=== PATIENT | female | born 1960 | race Caucasian/White ===

== ENCOUNTER 2019-03-19 21:29 | Inpatient (IN) | payer MEDICARE, MEDICAID, SELFPAY ==
--- NOTE | ~2019-03-19 | XR_ITS ---
EXAMINATION: XR chest 1V portable EXAM DATE: 03/19/2019 23:07 INDICATION: Shortness of breath. TECHNIQUE: Portable AP frontal chest x-ray was obtained. Comparison is made to prior examination from 03/09/2019. FINDINGS: The cardiac silhouette is enlarged. Cardiac silhouette is stable in size compared to prior exam. There is pulmonary vascular congestion. There is indistinct reticulation with a bibasal predomi nance which may indicate pulmonary edema, new finding compared to prior study. No confluent consolida tion or pneumothorax. No sizable pleural effusion. IMPRESSION: Cardiomegaly, congestion and possibly developing pulmonary edema. Reviewed, dictated and finalized at location [facility]
--- NOTE | ~2019-03-19 | XR_ITS ---
XR chest 2V DATE: 03/22/2019 14:04 INDICATION: Shortness of breath TECHNIQUE: PA and lateral views COMPARISON: 03/19/2019 portable AP chest FINDINGS: There is mild atelectasis in both lower lung zones. No pleural effusion or pulmonary vascul ar congestion or pneumothorax is evident. Cardiomegaly. Pulmonary vascularity appears within normal range. There is minimal if any pleural effu alona. There is degenerative spurring of the thoracic spine. Surgical clips, right upper quadrant, consistent with cholecystectomy. IMPRESSION: Mild atelectasis in the lower lung zones Cardiomegaly Reviewed, dictated and finalized at location [facility]. [facility]
[2019-03-19 21:25] VITALS: O2SAT 96
[2019-03-19 21:29] VITALS: BP 136/98; PULSE 93; RESP 24; O2SAT 99
--- NOTE | 2019-03-19 21:30 | ED.GENADULT ---
HPI - General Adult General Chief complaint: Shortness of Breath/Dyspnea Stated complaint: cp Time Seen by Provider: 03/19/19 21:30 Source: patient Mode of arrival: EMS Limitations: no limitations History of Present Illness HPI narrative: The pt is a 58 y/o female who presents to the ED, via EMS, with c/o SOB and CP that began 1 week ago. The pt states that her CP is located at the middle of her chest and radiates to her lt shoulder. She describes her CP as a sharp pain, rating it a 9/10. The pt has not found anything that makes her pain better or worse. She also reports lt back pain, lt leg pain, cough, and BLE edema, but denies fever or dysuria. The pt notes that she did vomit earlier today but denies vomiting in the ED bed. She has a PMHx of COPD, HTN, and DM, as well as a SHx of a . The pt is normally on home O2 and has not received any breathing treatments en route to the ED. MD complaint: CP and SOB Onset (ago): week(s) (1) Location: chest (middle) Radiation: other (lt shoulder) Severity scale (1-10): 9 Quality: sharp Relieving factors: none Exacerbating factors: none Associated symptoms: cough and other (lt back pain, lt leg pain, BLE edema) Related Data Home Medications Medication Instructions Recorded Confirmed albuterol sulfate 2 puff INHALATION Q4H PRN 03/19/19 03/20/19 ascorbic acid (vitamin C) 500 mg PO DAILY 03/19/19 03/20/19 insulin lispro [Humalog U-100 1 sliding scale dose SUBCUT 03/19/19 03/20/19 Insulin] USEASDIRECTD loperamide 4 mg PO BID 03/19/19 03/20/19 omeprazole 20 mg PO DAILY PRN 03/19/19 03/20/19 polyethylene glycol 3350 17 g PO DAILY PRN 03/19/19 03/20/19 ropinirole 2 mg PO BID 03/19/19 03/20/19 acetaminophen 650 mg PO Q6H PRN 03/20/19 03/20/19 alprazolam [Xanax] 0.25 mg PO TID PRN 03/20/19 03/20/19 amitriptyline 50 mg PO HS 03/20/19 03/20/19 aspirin 81 mg PO DAILY 03/20/19 03/20/19 bisacodyl 10 mg PO DAILY PRN 03/20/19 03/20/19 calcium carbonate [Antacid 400 mg PO TID PRN 03/20/19 03/20/19 (calcium carbonate)] carvedilol [Coreg] 25 mg PO BID 03/20/19 03/20/19 ferrous sulfate 325 mg PO EVERY OTHER DAY 03/20/19 03/20/19 furosemide [Lasix] 40 mg PO BID 03/20/19 03/20/19 hydrocodone-acetaminophen 1 tablet PO Q6H PRN 03/20/19 03/20/19 insulin glargine [Lantus U-100 20 unit SUBCUT HS 03/20/19 03/20/19 Insulin] levothyroxine 50 mcg PO DAILY 03/20/19 03/20/19 lurasidone [Latuda] 80 mg PO DAILY 03/20/19 03/20/19 melatonin 3 mg PO HS PRN 03/20/19 03/20/19 melatonin 5 mg PO HS PRN 03/20/19 03/20/19 metformin 500 mg PO BID 03/20/19 03/20/19 Allergies Allergy/AdvReac Type Severity Reaction Status Date / Time codeine Allergy Unknown Verified 03/19/19 23:26 Penicillins Allergy Unknown Verified 03/19/19 23:26 Sulfa (Sulfonamide Allergy Unknown Verified 03/19/19 23:26 Antibiotics) Review of Systems Review of Systems: All systems reviewed & are unremarkable except as noted in HPI and below Constitutional: Constitutional: Denies fever(s) Cardiovascular: Cardiovascular: Reports chest pain and Reports edema (BLE) Respiratory: Respiratory: Reports cough and Reports dyspnea Gastrointestinal: Gastrointestinal: Denies vomiting Genitourinary: Genitourinary: Denies dysuria Musculoskeletal: Musculoskeletal: Reports back pain (lt) and Reports other (lt leg pain) [facility] Past Medical History Medical History (Updated 03/21/19 @ 15:39 by Praveena Beth MD) COPD (chronic obstructive pulmonary disease) Diabetes Hypertension Surgical History Surgical History (Updated 03/19/19 @ 21:37 by Aracely Morse) History of primary section Family History Family History (Updated 12/14/19 @ 03:28 by Yumiko Simpson RN) Mother Diabetes mellitus Alcohol abuse CHF (congestive heart failure) Heart attack Hypertension Blood clot in vein Asthma Sibling Diabetes mellitus Hypertension Social History Social History (Updated 03/19/19 @ 21:37 by Aracely Morse)
--- NOTE | 2019-03-19 21:37 | ECG_ITS ---
Measurements Intervals [place] Rate: 103 P: 43 PA: 146 QRS: -38 QRSD: 130 T: 53 QT: 337 QTc: 442 Interpretive Statements SINUS TACHYCARDIA LEFT AXIS DEVIATION INTRAVENTRICULAR CONDUCTION DELAY VOLTAGE CRITERIA FOR LVH MINIMAL Q WAVES- LATERAL LEADS BASELINE ARTIFACT- I, II, AVR, AVL, AVF ABNORMAL ECG Electronically Signed On 03-20-2019 8:04:40 [employer]OCHEMI[employer] TEACHER by Mikey Garza D.O.
[2019-03-19 21:41] VITALS: PULSE 103
[2019-03-19 21:55] LABS: Basophils Percent Auto 0.4 % (0.2-1.2); Eosinophils Absolute Auto 0.1 K/mm3 (0-0.3); Eosinophils Percent Auto 1.4 % (0-4.4); Hematocrit 35.3 % (37.0-47.0); Hemoglobin 10.3 g/dL (12.0-15.0); Immature Granulocyte Absolute 0.29 K/mm3 (0.00-0.031); Immature Granulocyte Percent A 3.7 % (0-0.5); Lymphocytes Absolute Auto 0.92 K/mm3 (0.9-3.2); Lymphocytes Percent Auto 11.8 % (18.3-44.2); Mean Corpuscular HGB Conc 29.2 g/dl (32-36); Mean Corpuscular Hemoglobin 29.4 pg (26-34); Mean Corpuscular Volume 100.9 fl (80-100); Mean Platelet Volume 10.1 fl (7.4-10.4); Monocytes Absolute Auto 0.7 K/mm3 (0.1-0.6); Monocytes Percent Auto 8.7 % (2.6-8.5); Neutrophils Absolute Auto 5.8 K/mm3 (1.3-6.7); Nucleated Red Blood Cells Perc 0.4 % (0.0-0.2); Platelet Count Result 174 k/mm3 (150-375); Red Cell Distribution Width 14.6 % (11.5-14.5); White Blood Count 7.8 K/mm3 (4.5-10.0)
[2019-03-19 22:07] LABS: Platelet Estimate Adequate (Adequate)
[2019-03-19 22:08] LABS: Anisocytosis 1+ (NORMAL); Hypochromasia 1+ (NORMAL)
[2019-03-19 22:11] LABS: Alanine Aminotransferase 26 U/L (4-35); Albumin Level 3.3 g/dL (3.5-5.1); Alkaline Phosphatase 100 U/L (38-126); Aspartate Amino Transferase 27 U/L (14-36); Bilirubin,Total 0.4 mg/dL (0.2-1.3); Blood Urea Nitrogen 33 mg/dL (7-17); Calcium 8.4 mg/dL (8.4-10.2); Carbon Dioxide > 40 mmol/L (22-30); Chloride 88 mmol/L (98-107); Estimated Glomerular Filt Rate 46; Glucose 130 mg/dL (65-105); Potassium 4.1 mmol/L (3.4-5.0); Sodium 140 mmol/L (137-145)
[2019-03-19 22:15] VITALS: PULSE 99; RESP 19
[2019-03-19] MEDS: ALBUTEROL SULFATE NEB 2.5 MG/0.5 ML INH INHALATION (22:20)
[2019-03-19] MEDS: IPRATROPIUM BR 0.02% INH SOLN 0.5 MG/2.5 ML VIAL INHALATION (22:20)
[2019-03-19 22:35] VITALS: PULSE 101; RESP 18
[2019-03-19 22:36] LABS: Base Excess ABG 14.7 mEq/l (+/-2.0); Carboxyhemoglobin 0.9 % THb (0-2.0); Fractional Inspired Oxygen 36 %; HCO3 ABG 46.2 mEq/l (22.0-26.0); Methemoglobin ABG 0.3 %THb (0-1.5); Oxygen Content ABG 14.9 %vol (16.0-22.0); Oxygen Saturation ABG 98.4 % (95.0-100.0); PO2 ABG 155.3 mmHg (80.0-100.0); PO2 FiO2 Ratio Arterial Blood 4.31 %; Reduced Hemoglobin 2.8 %THb (0-5.0); Total Hemoglobin 10.8 g/dL (12.0-18.0)
[2019-03-19 22:45] VITALS: PULSE 101; RESP 20
[2019-03-19 22:45] LABS: PCO2 ABG 113.8 mmHg (35.0-45.0); pH ABG 7.226 (7.350-7.450)
[2019-03-19 22:47] LABS: Site Drawn LEFT RADIAL
[2019-03-19 22:48] LABS: Device NASAL CANNULA; Modified Allen's Test Pass
[2019-03-19] MEDS: methylPREDNISolone SOD SUCC 125 MG VIAL IV PUSH (22:58)
[2019-03-20] VITALS (30 sets, daily range): BP systolic 124–168; BP diastolic 71–105; PULSE 69–108; RESP 14–26; TEMP 36.1–36.6; O2SAT 95–100; BMI 52.0
[2019-03-20 00:04] LABS: NT Pro B Type Natriuretic Pept 1130 PG/ML (5-100); Troponin I < 0.012 ng/mL (0.000-0.034)
[2019-03-20 00:30] LABS: Alveolar/Arterial O2 Gradient 79.9 mmHg; Base Excess ABG 8.3 mEq/l (+/-2.0); Carboxyhemoglobin 1.4 % THb (0-2.0); Fractional Inspired Oxygen 40 %; HCO3 ABG 38.1 mEq/l (22.0-26.0); Methemoglobin ABG 0.3 %THb (0-1.5); Oxygen Content ABG 14.7 %vol (16.0-22.0); Oxygen Saturation ABG 96.5 % (95.0-100.0); Oxyhemoglobin 94.1 % THb (90.0-100.0); PO2 ABG 103.3 mmHg (80.0-100.0); PO2 FiO2 Ratio Arterial Blood 2.58 %; Reduced Hemoglobin 4.2 %THb (0-5.0)
[2019-03-20 00:32] LABS: Modified Allen's Test Pass; PCO2 ABG 88.7 mmHg (35.0-45.0); Site Drawn LEFT RADIAL; pH ABG 7.251 (7.350-7.450)
[2019-03-20 00:33] LABS: Device NON-INVASIVE VENT; Non-Invasive Expiratory Pressure 6 CMH2O; Non-Invasive Inspiratory Pressure 16 CMH2O; Non-Invasive Vent Rate 14 /MIN
[2019-03-20 01:42] LABS: Troponin I < 0.012 ng/mL (0.000-0.034)
--- NOTE | 2019-03-20 01:54 | ADMGEN ---
This patient, Sameera Chilel, was admitted to IMU Room 232-01. Patient/family oriented to hospital policies and general routines including ID bracelet, bed and alarms, visiting hours, pain management, procedures, bathroom and other care routines, personal items, smoking policy, room service/diet, and visiting hours. Valuables list has been completed. Information on how to activate the Rapid Response Team has been discussed. Patient/Family are encouraged to report perceived risks to care and to ask questions if they do not understand what they are told or what they should do.
[2019-03-20 04:19] LABS: Troponin I < 0.012 ng/mL (0.000-0.034)
[2019-03-20 04:58] LABS: Alveolar/Arterial O2 Gradient 89.2 mmHg; Base Excess ABG 7.8 mEq/l (+/-2.0); Carboxyhemoglobin 1.6 % THb (0-2.0); Fractional Inspired Oxygen 40 %; HCO3 ABG 38.9 mEq/l (22.0-26.0); Methemoglobin ABG 0.3 %THb (0-1.5); Oxygen Content ABG 19.2 %vol (16.0-22.0); Oxygen Saturation ABG 95.3 % (95.0-100.0); PO2 ABG 92.2 mmHg (80.0-100.0); Reduced Hemoglobin 5.1 %THb (0-5.0); Total Hemoglobin 14.6 g/dL (12.0-18.0)
[2019-03-20 05:00] LABS: PCO2 ABG 90.3 mmHg (35.0-45.0); pH ABG 7.252 (7.350-7.450)
[2019-03-20 05:01] LABS: Device NON-INVASIVE VENT; Modified Allen's Test Pass; Site Drawn LEFT RADIAL
[2019-03-20 05:02] LABS: Non-Invasive Expiratory Pressure 8 CMH2O; Non-Invasive Inspiratory Pressure 24 CMH2O; Non-Invasive Vent Rate 20 /MIN
[2019-03-20 05:49] LABS: Glucose Point of Care 199 (65-105)
[2019-03-20] MEDS: methylPREDNISolone SOD SUCC 125 MG VIAL 60 MG IV PUSH ×3 (06:23→21:02)
[2019-03-20] MEDS: LEVOTHYROXINE SODIUM 50 MCG TABLET PO (06:23)
--- NOTE | 2019-03-20 06:31 | HP_ITS ---
DATE OF SERVICE: 03/20/2019 The patient has also been admitted under a on prior hospitalization. TIME: 0245. CHIEF COMPLAINT: Chest pain. HISTORY OF PRESENT ILLNESS: The patient is a pleasant 58-year-old female with a past medical history of bipolar disorder, prior CVA, Parkinson disease, morbid obesity with obesity hypoventilation, obstructive sleep apnea, and COPD, who presented to the ER from [facility] for chest pain that has been ongoing for one week. The patient reported the pain is in the middle of her chest and radiates to her left shoulder. She describes the pain as sharp and 9/10 in intensity. She denied any eliciting or relieving factors. However, at the time of my evaluation, the patient reports that she has been feeling more short of breath for the last couple of days. She reports a cough that is nonproductive. She has been feeling feverish, but denies any chills. She does have chronic bilateral lower extremity swelling, but she does not know if it is any worse than usual. She did have 1 episode of posttussive emesis prior to coming to the ER. She denies any nausea or changes in appetite. She has been having normal bowel movement. She denies any dysuria or hematuria. The patient does have chronic hypoxic and hypercapnic respiratory failure when she arrived to the ER. She was tachycardic and tachypneic, but saturating 99% on 4 L nasal cannula. ABG performed at that time demonstrated pH of 7.226, pCO2 of 113, and PO2 of 155, and the patient subsequently received nebulizer treatment with albuterol and Atrovent, IV Solu-Medrol, and 1 dose of methylprednisolone. Repeat ABG about an hour and half after BiPAP placement demonstrated minimal improvement in her pH 7.251 and pCO2 of 88. The patient's ABG was significantly worse than her prior ABGs, which demonstrated normal pH and pCO2 between 60 and 70. The patient has subsequently had 3 sets of troponins since presentation that have been negative. She reports that she feels minimally better since she was admitted to the IMU. The patient does have baseline intellectual disability, but is usually at least a fair historian. The patient does still have terrible dental caries and chronic associated mouth pain. Of note, the patient did have a polysomnogram performed in February 2019, which recommended a CPAP of 13 and a sleep study was terminated early due to the patient's request. When the patient was [facility] to the [facility] facility, it looks as if she was discharged on BiPAP with settings of 16/6 with a rate of 12. The patient states that she has been using her breathing machine at the [facility]. The patient has candidiasis in the inguinal folds and under her pannus fold. REVIEW OF SYSTEMS: Except as documented in her HPI, all other systems were reviewed and are negative. PAST MEDICAL HISTORY: 1. Chronic anemia with hemoglobin at baseline around 10. 2. Anxiety. 3. Bipolar disease. 4. Congestive heart failure with echocardiogram on 02/15/2019 demonstrated mild concentric left ventricular hypertrophy with systolic function of 55-60. 5. COPD with chronic hypoxic hypercarbic respiratory failure. 6. Obesity hypoventilation. 7. Obstructive sleep apnea with sleep study 02/25/2019, recommended CPAP of 13. However, the exam was terminated early due to patient's discomfort. 8. CVA. 9. Depression. 10. Insulin-dependent diabetes mellitus with hemoglobin A1c of 9.1 obtained on March 10, 2019. 11. GERD. 12. Hypothyroidism. 13. Intellectual disability. I suspect the patient's chronic intellectual disability is due to alcohol syndrome. 14. Chronic lymphedema of bilateral lower extremities. 15. Obesity with BMI of 52.1. 16. Parkinson disease. 17. Vitamin D deficiency. 18.
[2019-03-20 09:06] LABS: Glucose Point of Care 219 (65-105)
[2019-03-20] MEDS: TOLNAFTATE 1% POWDER 45 GM BTL 1 APPLIC TOPICAL ×2 (09:52→21:04)
[2019-03-20] MEDS: ASPIRIN 81 MG ENTERIC TABLET PO (09:58)
[2019-03-20] MEDS: PANTOPRAZOLE SOD SESQUIHYDRATE 20 MG TAB PO (09:58)
[2019-03-20] MEDS: ASCORBIC ACID 500 MG TABLET PO (09:58)
[2019-03-20] MEDS: FUROSEMIDE INJ 40 MG/4 ML VIAL IV PUSH ×2 (09:59→17:32)
[2019-03-20] MEDS: ENOXAPARIN 40 MG/0.4 ML SYRINGE SUB-Q ×2 (09:59→21:01)
[2019-03-20] MEDS: carvediloL 25 MG TABLET PO ×2 (09:59→21:00)
[2019-03-20] MEDS: IPRATROPIUM BR 0.02% INH SOLN 0.5 MG/2.5 ML VIAL INHALATION ×3 (10:14→21:31)
[2019-03-20] MEDS: ALBUTEROL SULFATE NEB 2.5 MG/0.5 ML INH 5 MG INHALATION ×3 (10:14→21:31)
[2019-03-20 11:36] LABS: Alveolar/Arterial O2 Gradient 54.6 mmHg; Carboxyhemoglobin 0.8 % THb (0-2.0); Fractional Inspired Oxygen 30 %; HCO3 ABG 42.1 mEq/l (22.0-26.0); Methemoglobin ABG 0.3 %THb (0-1.5); Oxygen Content ABG 13.3 %vol (16.0-22.0); Oxygen Saturation ABG 92.3 % (95.0-100.0); Oxyhemoglobin 91.5 % THb (90.0-100.0); PO2 ABG 69.4 mmHg (80.0-100.0); PO2 FiO2 Ratio Arterial Blood 2.31 %; Reduced Hemoglobin 7.4 %THb (0-5.0); Total Hemoglobin 10.3 g/dL (12.0-18.0); pH ABG 7.358 (7.350-7.450)
[2019-03-20 11:37] LABS: Modified Allen's Test Pass; PCO2 ABG 76.5 mmHg (35.0-45.0); Site Drawn LEFT RADIAL
[2019-03-20 11:38] LABS: Device NON-INVASIVE VENT; Non-Invasive Expiratory Pressure 8 CMH2O; Non-Invasive Inspiratory Pressure 24 CMH2O; Non-Invasive Vent Rate 20 /MIN
[2019-03-20 12:00] LABS: Glucose Point of Care 240 (65-105)
[2019-03-20] MEDS: INSULIN ASPART (*BKC) 100 UNITS/ML SUB-Q ×2 (12:27→17:34)
[2019-03-20] MEDS: metFORMIN HCL 500 MG TABLET PO (17:32)
[2019-03-20 17:39] LABS: Glucose Point of Care 318 (65-105)
--- NOTE | 2019-03-20 17:55 | PM.IMPN ---
Progress Note: A&P Assessment and Plan (1) Acute hypercapnic respiratory failure: Code(s): J96.02 - Acute respiratory failure with hypercapnia Status: Acute Assessment and Plan: Patient is a 58-year-old female a resident of care home morbidly obese with history of diastolic dysfunction CHF, COPD presented emergency department with the complaint of sharp chest pain is found to have hypercapnic respiratory failure with a CO2 over 100 was placed on BiPAP improvement in her CO2 and pH, currently patient on BiPAP unable to provide detailed review of symptom. Most likely multifactorial secondary to exacerbation of acute on chronic diastolic dysfunction, exacerbation of COPD hyperventilation due to morbid obesity, patient is being treated with BiPAP Solu-Medrol updraft and IV Lasix clinical continue to monitor the patient and taper her Solu-Medrol and adjust her Lasix as needed (2) Morbid (severe) obesity due to excess calories: Code(s): E66.01 - Morbid (severe) obesity due to excess calories Status: Acute (3) COPD exacerbation: Code(s): J44.1 - Chronic obstructive pulmonary disease with (acute) exacerbation Status: Acute Assessment and Plan: Patient with history of COPD now in exacerbation patient is being treated with Solu-Medrol updraft and antibiotics (4) Diastolic dysfunction with acute on chronic heart failure: Code(s): I50.33 - Acute on chronic diastolic (congestive) heart failure Status: Acute Assessment and Plan: Patient with diastolic dysfunction will continue patient on IV Lasix and monitor I&Os (5) Diabetes: Code(s): E11.9 - Type 2 diabetes mellitus without complications Status: Acute Assessment and Plan: Will continue home regimen and monitor (6) Hypertension: Code(s): I10 - Essential (primary) hypertension Status: Acute Assessment and Plan: Will continue patient's home regimen and monitor (7) Chest pain as manifestation of blood transfusion reaction: Code(s): R07.9 - Chest pain, unspecified; T80.89XA - Other complications following infusion, transfusion and therapeutic injection, initial encounter; Y84.8 - Other medical procedures as the cause of abnormal reaction of the patient, or of later complication, without mention of misadventure at the time of the procedure Status: Acute Assessment and Plan: Patient with chest pain upon arrival 3 sets of cardiac enzymes are negative there is no acute changes on EKG most likely musculoskeletal pain or possible due to exacerbation of COPD and CHF unlikely acute coronary syndrome Time Spent With Patient Time with patient: 15 - 25 minutes Subjective Interval history: Patient is a 58-year-old female a resident of care home morbidly obese with history of diastolic dysfunction CHF, COPD presented emergency department with the complaint of sharp chest pain is found to have hypercapnic respiratory failure with a CO2 over 100 was placed on BiPAP improvement in her CO2 and pH, currently patient on BiPAP unable to provide detailed review of symptom. Review of Systems Review of Systems: Narrative: Patient on BiPAP unable to provide detailed review of symptoms ROS unobtainable: other Exam Narrative: Exam Narrative: Morbidly obese with BMI of 52 Const: General: comfortable and no acute distress Other: On BiPAP HENMT: General nose exam: nares normal Mouth: Yes moist mucous membranes Eyes: General: appearance normal, both eyes and all related structures Sclera: sclerae normal Neck: Neck: supple Resp: Other: Bilateral diminishing air entry with rhonchi and rales Cardio: Rate: regular rate Rhythm: regular rhythm GI: Auscultation: normal bowel sounds Skin: General skin exam: normal color and no rashes or lesions noted Neuro: Sensory Exam: normal sensation Extrem: General: normal to inspection Psych: Affect: anxious affect Objective Data Vital Signs Vit
[2019-03-20 20:09] LABS: Glucose Point of Care 386 (65-105)
[2019-03-20] MEDS: AMITRIPTYLINE HCL 25 MG TABLET 50 MG PO (21:00)
[2019-03-20] MEDS: INSULIN GLARGINE (*BKC) 100 UNITS/ML 20 UNITS SUB-Q (21:01)
[2019-03-21] VITALS (22 sets, daily range): BP systolic 127–138; BP diastolic 69–80; PULSE 71–94; RESP 18–28; TEMP 36.1–36.9; O2SAT 93–100
[2019-03-21 00:28] LABS: Glucose Point of Care 363 (65-105)
[2019-03-21] MEDS: INSULIN ASPART (*BKC) 100 UNITS/ML SUB-Q ×2 (00:42→09:07)
[2019-03-21] MEDS: IPRATROPIUM BR 0.02% INH SOLN 0.5 MG/2.5 ML VIAL INHALATION ×4 (02:08→19:14)
[2019-03-21] MEDS: ALBUTEROL SULFATE NEB 2.5 MG/0.5 ML INH 5 MG INHALATION ×4 (02:09→19:14)
[2019-03-21 03:04] LABS: Glucose Point of Care 336 (65-105)
[2019-03-21 04:34] LABS: Hematocrit 30.4 % (37.0-47.0); Mean Corpuscular HGB Conc 29.6 g/dl (32-36); Mean Corpuscular Hemoglobin 29.1 pg (26-34); Mean Corpuscular Volume 98.4 fl (80-100); Mean Platelet Volume 10.7 fl (7.4-10.4); Platelet Count Result 194 k/mm3 (150-375); Red Blood Count 3.09 M/mm3 (4.2-5.4); White Blood Count 10.8 K/mm3 (4.5-10.0)
[2019-03-21] MEDS: methylPREDNISolone SOD SUCC 125 MG VIAL 60 MG IV PUSH ×3 (05:23→22:05)
[2019-03-21] MEDS: LEVOTHYROXINE SODIUM 50 MCG TABLET PO (05:23)
[2019-03-21 05:32] LABS: Blood Urea Nitrogen 40 mg/dL (7-17); Calcium 8.1 mg/dL (8.4-10.2); Carbon Dioxide > 40 mmol/L (22-30); Chloride 86 mmol/L (98-107); Estimated CRCL calculation 60 ml/min; Estimated Glomerular Filt Rate 46; Glucose 344 mg/dL (65-105); Magnesium 1.3 mg/dL (1.6-2.3); Potassium 4.4 mmol/L (3.4-5.0); Sodium 134 mmol/L (137-145)
[2019-03-21 08:25] LABS: Glucose Point of Care 301 (65-105)
[2019-03-21] MEDS: MAGNESIUM SULF 2 GM/WATER 50ML 2 GM/50 ML BAG IVPB (09:10)
[2019-03-21] MEDS: PANTOPRAZOLE SOD SESQUIHYDRATE 20 MG TAB PO (09:11)
[2019-03-21] MEDS: metFORMIN HCL 500 MG TABLET PO (09:11)
[2019-03-21] MEDS: ASCORBIC ACID 500 MG TABLET PO (09:11)
[2019-03-21] MEDS: carvediloL 25 MG TABLET PO ×2 (09:12→22:04)
[2019-03-21] MEDS: ASPIRIN 81 MG ENTERIC TABLET PO (09:12)
[2019-03-21] MEDS: ENOXAPARIN 40 MG/0.4 ML SYRINGE SUB-Q ×2 (09:13→22:05)
[2019-03-21] MEDS: TOLNAFTATE 1% POWDER 45 GM BTL 1 APPLIC TOPICAL ×2 (09:15→22:07)
[2019-03-21] MEDS: FUROSEMIDE INJ 40 MG/4 ML VIAL IV PUSH (09:18)
[2019-03-21 12:47] LABS: Glucose Point of Care 411 (65-105)
[2019-03-21] MEDS: INSULIN GLARGINE (*BKC) 100 UNITS/ML 20 UNITS SUB-Q ×2 (13:32→22:06)
[2019-03-21] MEDS: INSULIN ASPART (*BKC) 100 UNITS/ML 8 UNITS SUB-Q (13:33)
--- NOTE | 2019-03-21 15:13 | PM.IMPN ---
Progress Note: A&P Assessment and Plan (1) Acute hypercapnic respiratory failure: Code(s): J96.02 - Acute respiratory failure with hypercapnia Status: Acute Assessment and Plan: Patient is a 58-year-old female a [facility] morbidly obese with history of diastolic dysfunction CHF, COPD presented emergency department with the complaint of sharp chest pain is found to have hypercapnic respiratory failure with a CO2 over 100 was placed on BiPAP improvement in her CO2 and pH, currently patient on BiPAP unable to provide detailed review of symptom. Most likely multifactorial secondary to exacerbation of acute on chronic diastolic dysfunction, exacerbation of COPD hyperventilation due to morbid obesity, patient is being treated with BiPAP Solu-Medrol updraft and IV Lasix clinical continue to monitor the patient and taper her Solu-Medrol and adjust her Lasix as needed, today patient is off BIPAP and high flow NC, stats feeling better not as short of breath as when she arrive, will CPM and keep patient on NC during day and BIPAP during night. (2) Morbid (severe) obesity due to excess calories: Code(s): E66.01 - Morbid (severe) obesity due to excess calories Status: Acute (3) COPD exacerbation: Code(s): J44.1 - Chronic obstructive pulmonary disease with (acute) exacerbation Status: Acute Assessment and Plan: Patient with history of COPD now in exacerbation patient is being treated with Solu-Medrol updraft and antibiotics, will taper steroids as her symptoms improves. (4) Diastolic dysfunction with acute on chronic heart failure: Code(s): I50.33 - Acute on chronic diastolic (congestive) heart failure Status: Acute Assessment and Plan: Patient with diastolic dysfunction will continue patient on IV Lasix and monitor I&Os (5) Diabetes: Code(s): E11.9 - Type 2 diabetes mellitus without complications Status: Acute Assessment and Plan: Will continue home regimen and monitor (6) Hypertension: Code(s): I10 - Essential (primary) hypertension Status: Acute Assessment and Plan: Will continue patient's home regimen and monitor (7) Chest pain as manifestation of blood transfusion reaction: Code(s): R07.9 - Chest pain, unspecified; T80.89XA - Other complications following infusion, transfusion and therapeutic injection, initial encounter; Y84.8 - Other medical procedures as the cause of abnormal reaction of the patient, or of later complication, without mention of misadventure at the time of the procedure Status: Acute Assessment and Plan: Patient with chest pain upon arrival 3 sets of cardiac enzymes are negative there is no acute changes on EKG most likely musculoskeletal pain or possible due to exacerbation of COPD and CHF unlikely acute coronary syndrome Subjective Interval history: Patient is a 58-year-old female a resident of [facility] morbidly obese with history of diastolic dysfunction CHF, COPD presented emergency department with the complaint of sharp chest pain is found to have hypercapnic respiratory failure with a CO2 over 100 was placed on BiPAP improvement in her CO2 and pH, patient was on BiPAP was unable to provide detailed review of symptom, today patient is off BIPAP and high flow NC, stats feeling better not as short of breath as when she arrive, will CPM and keep patient on NC during day and BIPAP during night. Review of Systems Review of Systems: ROS unobtainable: other Exam Narrative: Exam Narrative: Morbidly obese with BMI of 52 Const: General: comfortable and no acute distress Other: On BiPAP HENMT: General nose exam: nares normal Mouth: Yes moist mucous membranes Eyes: General: appearance normal, both eyes and all related structures Sclera: sclerae normal Neck: Neck: supple Resp: Other: Bilateral diminishing air entry with rhonchi and rales Cardio: Rate: regular rate Rhythm: regular
[2019-03-21] MEDS: INSULIN ASPART (*BKC) 100 UNITS/ML 15 UNITS SUB-Q (15:58)
[2019-03-21 16:54] LABS: Glucose Point of Care 405 (65-105)
[2019-03-21 18:20] LABS: Glucose Point of Care 352 (65-105)
--- NOTE | 2019-03-21 19:09 | PC.NURSE ---
This patient, Sameera Chilel, was received from [IMU ] on 03/21/19 at 1610 . Personal belongings list checked and signed. Patient/family oriented to unit policies and routines
[2019-03-21] MEDS: AMITRIPTYLINE HCL 25 MG TABLET 50 MG PO (22:05)
[2019-03-21] MEDS: ACETAMINOPHEN 325 MG TABLET 650 MG PO (22:08)
[2019-03-21 22:53] LABS: Glucose Point of Care 340 (65-105)
[2019-03-22] VITALS (16 sets, daily range): BP systolic 133–154; BP diastolic 65–85; PULSE 72–96; RESP 18–22; TEMP 36.3–36.4; O2SAT 93–98
[2019-03-22] MEDS: IPRATROPIUM BR 0.02% INH SOLN 0.5 MG/2.5 ML VIAL INHALATION ×4 (01:51→19:58)
[2019-03-22] MEDS: ALBUTEROL SULFATE NEB 2.5 MG/0.5 ML INH 5 MG INHALATION ×4 (01:51→19:58)
--- NOTE | 2019-03-22 02:30 | PC.NURSE ---
1700 medications non-administered on JUN. Per Jayne and pt all medications were received in IMU before patient was transferred to room 326.
[2019-03-22 04:15] LABS: Glucose Point of Care 362 (65-105)
[2019-03-22] MEDS: INSULIN GLARGINE (*BKC) 100 UNITS/ML 20 UNITS SUB-Q ×3 (04:41→17:21)
[2019-03-22] MEDS: methylPREDNISolone SOD SUCC 40 MG VIAL IV PUSH (06:00)
[2019-03-22] MEDS: LEVOTHYROXINE SODIUM 50 MCG TABLET PO (06:00)
[2019-03-22 06:15] LABS: Hematocrit 30.6 % (37.0-47.0); Hemoglobin 9.2 g/dL (12.0-15.0); Mean Corpuscular HGB Conc 30.1 g/dl (32-36); Mean Corpuscular Hemoglobin 29.1 pg (26-34); Mean Corpuscular Volume 96.8 fl (80-100); Mean Platelet Volume 10.6 fl (7.4-10.4); Platelet Count Result 204 k/mm3 (150-375); Red Blood Count 3.16 M/mm3 (4.2-5.4); Red Cell Distribution Width 14.1 % (11.5-14.5); White Blood Count 11.3 K/mm3 (4.5-10.0)
[2019-03-22 06:33] LABS: Blood Urea Nitrogen 48 mg/dL (7-17); Calcium 8.2 mg/dL (8.4-10.2); Carbon Dioxide > 40 mmol/L (22-30); Chloride 84 mmol/L (98-107); Estimated CRCL calculation 52 ml/min; Estimated Glomerular Filt Rate 39; Glucose 389 mg/dL (65-105); Magnesium 1.6 mg/dL (1.6-2.3); Potassium 4.4 mmol/L (3.4-5.0); Sodium 133 mmol/L (137-145)
[2019-03-22] MEDS: INSULIN ASPART (*BKC) 100 UNITS/ML SUB-Q ×3 (07:46→17:18)
[2019-03-22 08:02] LABS: Glucose Point of Care 363 (65-105)
[2019-03-22] MEDS: carvediloL 25 MG TABLET PO ×2 (08:29→20:29)
[2019-03-22] MEDS: PANTOPRAZOLE SOD SESQUIHYDRATE 20 MG TAB PO (08:29)
[2019-03-22] MEDS: ASCORBIC ACID 500 MG TABLET PO (08:29)
[2019-03-22] MEDS: metFORMIN HCL 500 MG TABLET PO ×2 (08:29→17:22)
[2019-03-22] MEDS: FUROSEMIDE INJ 40 MG/4 ML VIAL IV PUSH (08:30)
[2019-03-22] MEDS: ASPIRIN 81 MG ENTERIC TABLET PO (08:31)
[2019-03-22] MEDS: TOLNAFTATE 1% POWDER 45 GM BTL 1 APPLIC TOPICAL ×2 (08:31→20:33)
[2019-03-22] MEDS: ENOXAPARIN 40 MG/0.4 ML SYRINGE SUB-Q ×2 (11:33→20:29)
[2019-03-22 12:35] LABS: Glucose Point of Care 388 (65-105)
--- NOTE | 2019-03-22 15:00 | PM.IMPN ---
Progress Note: A&P Assessment and Plan (1) Acute hypercapnic respiratory failure: Code(s): J96.02 - Acute respiratory failure with hypercapnia Status: Acute Assessment and Plan: Patient is a 58-year-old female a resident of [facility] morbidly obese with history of diastolic dysfunction CHF, COPD presented emergency department with the complaint of sharp chest pain is found to have hypercapnic respiratory failure with a CO2 over 100 was placed on BiPAP improvement in her CO2 and pH, currently patient on BiPAP unable to provide detailed review of symptom. Most likely multifactorial secondary to exacerbation of acute on chronic diastolic dysfunction, exacerbation of COPD hypoventilation due to morbid obesity, patient is being treated with BiPAP Solu-Medrol updraft and IV Lasix clinical continue to monitor the patient and taper her Solu-Medrol and adjust her Lasix as needed, today patient is off BIPAP and high flow NC, stats feeling better not as short of breath as when she arrive, will CPM and keep patient on NC during day and BIPAP during night. (2) Morbid (severe) obesity due to excess calories: Code(s): E66.01 - Morbid (severe) obesity due to excess calories Status: Acute (3) COPD exacerbation: Code(s): J44.1 - Chronic obstructive pulmonary disease with (acute) exacerbation Status: Acute Assessment and Plan: Patient with history of COPD now in exacerbation patient is being treated with Solu-Medrol updraft and antibiotics, will taper steroids as her symptoms improves to prednisone 60mg qdaily for methyleprednisone 40mg q8, will monitor and possibly discharge tomorrow tapering dose of prednison (4) Diastolic dysfunction with acute on chronic heart failure: Code(s): I50.33 - Acute on chronic diastolic (congestive) heart failure Status: Acute Assessment and Plan: Patient with diastolic dysfunction will continue patient on IV Lasix and monitor I&Os, patient clinicall symptoms are imprving, will switch patient to oral lasix. (5) Diabetes: Code(s): E11.9 - Type 2 diabetes mellitus without complications Status: Acute Assessment and Plan: Will continue home regimen and monitor (6) Hypertension: Code(s): I10 - Essential (primary) hypertension Status: Acute Assessment and Plan: Will continue patient's home regimen and monitor (7) Chest pain as manifestation of blood transfusion reaction: Code(s): R07.9 - Chest pain, unspecified; T80.89XA - Other complications following infusion, transfusion and therapeutic injection, initial encounter; Y84.8 - Other medical procedures as the cause of abnormal reaction of the patient, or of later complication, without mention of misadventure at the time of the procedure Status: Acute Assessment and Plan: Patient with chest pain upon arrival 3 sets of cardiac enzymes are negative there is no acute changes on EKG most likely musculoskeletal pain or possible due to exacerbation of COPD and CHF unlikely acute coronary syndrome Subjective Interval history: Patient is a 58-year-old female a resident of [facility] morbidly obese with history of diastolic dysfunction CHF, COPD presented emergency department with the complaint of sharp chest pain is found to have hypercapnic respiratory failure with a CO2 over 100 was placed on BiPAP, resulting in improvement in her CO2 and pH, patient was on BiPAP was unable to provide detailed review of symptom, most likely multifactorial 2/2 exacerbation of diastolic dysfunction CHF and COPD, patient is being diuresed and on steroids with updraft, today patient is off BIPAP and high flow NC, stats feeling better not as short of breath as when she arrive, will CPM and keep patient on NC during day and BIPAP during night. If remains clinically stable will discnarge patient home tomorrow. Review of Systems Review of Systems: ROS unobtainable: other Exam Narrative:
[2019-03-22 17:45] LABS: Glucose Point of Care 262 (65-105)
[2019-03-22 20:31] LABS: Glucose Point of Care 211 (65-105)
[2019-03-22] MEDS: AMITRIPTYLINE HCL 25 MG TABLET 50 MG PO (20:31)
[2019-03-23] VITALS (9 sets, daily range): BP systolic 133–183; BP diastolic 68–83; PULSE 77–96; RESP 18–20; TEMP 36.6; O2SAT 94–99
[2019-03-23] MEDS: IPRATROPIUM BR 0.02% INH SOLN 0.5 MG/2.5 ML VIAL INHALATION ×3 (02:17→13:29)
[2019-03-23] MEDS: ALBUTEROL SULFATE NEB 2.5 MG/0.5 ML INH 5 MG INHALATION ×3 (02:17→13:29)
[2019-03-23 05:59] LABS: Hematocrit 31.7 % (37.0-47.0); Hemoglobin 9.7 g/dL (12.0-15.0); Mean Corpuscular HGB Conc 30.6 g/dl (32-36); Mean Corpuscular Hemoglobin 29.8 pg (26-34); Mean Corpuscular Volume 97.2 fl (80-100); Mean Platelet Volume 9.7 fl (7.4-10.4); Platelet Count Result 210 k/mm3 (150-375); Red Blood Count 3.26 M/mm3 (4.2-5.4); Red Cell Distribution Width 14.2 % (11.5-14.5); White Blood Count 10.8 K/mm3 (4.5-10.0)
[2019-03-23 06:20] LABS: Blood Urea Nitrogen 53 mg/dL (7-17); Calcium 8.2 mg/dL (8.4-10.2); Carbon Dioxide > 40 mmol/L (22-30); Chloride 85 mmol/L (98-107); Estimated CRCL calculation 60 ml/min; Estimated Glomerular Filt Rate 46; Glucose 133 mg/dL (65-105); Magnesium 1.6 mg/dL (1.6-2.3); Sodium 137 mmol/L (137-145)
[2019-03-23 07:40] LABS: Glucose Point of Care 103 (65-105)
[2019-03-23] MEDS: FUROSEMIDE 40 MG TABLET PO (08:39)
[2019-03-23] MEDS: ASCORBIC ACID 500 MG TABLET PO (08:39)
[2019-03-23] MEDS: PANTOPRAZOLE SOD SESQUIHYDRATE 20 MG TAB PO (08:39)
[2019-03-23] MEDS: metFORMIN HCL 500 MG TABLET PO ×2 (08:39→17:21)
[2019-03-23] MEDS: predniSONE 20 MG TABLET 60 MG PO (08:42)
[2019-03-23] MEDS: ENOXAPARIN 40 MG/0.4 ML SYRINGE SUB-Q (08:43)
[2019-03-23] MEDS: INSULIN GLARGINE (*BKC) 100 UNITS/ML 20 UNITS SUB-Q ×2 (08:43→17:24)
[2019-03-23] MEDS: carvediloL 25 MG TABLET PO (08:43)
[2019-03-23] MEDS: ASPIRIN 81 MG ENTERIC TABLET PO (08:43)
[2019-03-23] MEDS: LEVOTHYROXINE SODIUM 50 MCG TABLET PO (08:45)
[2019-03-23] MEDS: TOLNAFTATE 1% POWDER 45 GM BTL 1 APPLIC TOPICAL (08:46)
[2019-03-23 17:17] LABS: Glucose Point of Care 99 (65-105)
[2019-03-23 18:18] LABS: Glucose Point of Care 136 (65-105)
--- NOTE | 2019-03-25 01:56 | DS_ITS ---
DATE OF DISCHARGE: 03/23/2019 DIAGNOSES: 1. Acute respiratory failure with hypercapnia. 2. Congestive heart failure, dpvkc-mh-kkizfye diastolic. 3. Chronic obstructive pulmonary disease with exacerbation. 4. Diabetes mellitus type 2, on insulin. 5. Hypertension. 6. Bipolar disorder. HISTORY OF PRESENT ILLNESS: The patient is a 58-year-old white female with morbid obesity, obesity hypoventilation syndrome with obstructive sleep apnea, COPD, who presented to the emergency room from her assisted for complaints of chest discomfort and shortness of breath. She had sharp left-sided chest pain that is constant. She said she felt a little feverish at times and nausea. When she arrived to the emergency room, she is tachycardic, tachypneic, saturating 99% on 4 L. Her arterial blood gas was pH 7.226, pCO2 of 113, and a pO2 of 155. She is admitted for yyhfy-rc-zlbduha respiratory failure with hypercapnia. Complete history and physical is enumerated in her admitting history and physical. On admission, chest x-ray showed cardiomegaly with congestion, possible pulmonary edema. White count was 7800, hemoglobin was 10.3, MCV of 100, platelet 174, 74 segs. Blood gas as stated above. Sodium 140, potassium 4.1, chloride 88, total CO2 of 40, BUN 33, and creatinine 1.2. Glucose random 130. LFTs normal. Troponin less than 0.012 x3. BNP 1130. The EKG was sinus tach. No definite ischemic changes. HOSPITAL COURSE: 1. Ngpgv-lc-ahwbdpt respiratory failure with hypercapnia. With BiPAP setting 16.6, with steroids, and with updraft treatments, she steadily improved by the . She had a blood gas 7.35, pCO2 of 76, pO2 of 69. Pretty much her baseline. She continued to improve and by the time of discharge on 2 L to 3 L nasal cannula, she was saturating 98% on room air. Respirations were 18 per minute. She is very comfortable with lungs clear. 2. Lkjqe-js-lfmromy diastolic heart failure. She remains fairly euvolemic. Coreg at 25 b.i.d., and her Lasix 40 b.i.d. was reinstituted after IV Lasix here. She had positive output for most days here, was feeling much better by the time of discharge. She will as stated continue on her Coreg and diuretic. 3. COPD exacerbation. As stated, she has received updrafts. She received steroids and will be on tapering steroids at home. 4. Diabetes mellitus type 2. Blood sugar did run higher while here, had increased doses of Lantus with a taper of prednisone. She will be back after 20 units daily along with her Latuda and metformin. 5. Hypertension. Pressure fair control with the furosemide and the Coreg. We will suspect her pressure to drop further off the steroids later. 6. Bipolar disorder, inactive problem at this time. She will continue her usual medications, her Latuda, ropinirole. PROCEDURES DURING THIS HOSPITALIZATION: Routine. CONSULTANTS: None. CONDITION ON DISCHARGE: Blood pressure had still intermittently running high and on the morning of discharge, it is 134/68, pulse is 77, saturating 99% on 2 L to 2.5 L. Lungs were clear. She was discharged back to [facility]. Activity as tolerated with a low-sodium diabetic diet. She will get a basic metabolic profile on the . She will follow up with her primary care within the next 2 weeks. DISCHARGE MEDICATIONS: Her list of discharge medications includes: 1. Prednisone taper. 2. Acetaminophen q.6 p.r.n. 3. Albuterol 2 puffs q.4 p.r.n. 4. Amitriptyline 50 at bedtime. 5. Vitamin C 500 daily. 6. Aspirin 81 mg daily. 7. Dulcolax 10 daily p.r.n. 8. Coreg 25 b.i.d. 9. Calcium carbonate 400 t.i.d. 10. Ferrous sulfate 325 every other day. 11. Furosemide 40 b.i.d. 12. Hydrocodone acetaminophen 1 q.6 hours p.r.n. 13. Insulin Lantus 20 units at bedtime. 14. Sliding scale for the lispro. 15. Latu
== END 2019-03-23 17:45 | DRG 291 ==
LOC: ANHED 03-20 00:03 → ANHIMU 03-20 01:22 → ANH3MEDSUR 03-22 10:55 → ANHIMU 03-26 07:51
PROVIDERS: Family Medicine; Admitting Provider Internal Medicine; Emergency Provider Emergency Medicine; Visit Provider Internal Medicine
DX: I11.0 Hypertensive heart disease with heart failure (principal); J96.22 Acute and chronic respiratory failure with hypercapnia; J44.1 Chronic obstructive pulmonary disease with (acute) exacerbation; E66.2 Morbid (severe) obesity with alveolar hypoventilation; Z68.43 Body mass index [BMI] 50.0-59.9, adult; I50.33 Acute on chronic diastolic (congestive) heart failure; E11.649 Type 2 diabetes mellitus with hypoglycemia without coma; F31.9 Bipolar disorder, unspecified; G20 Parkinson's disease; G47.33 Obstructive sleep apnea (adult) (pediatric); Z79.4 Long term (current) use of insulin; Z99.81 Dependence on supplemental oxygen; Z79.82 Long term (current) use of aspirin
CPT/HCPCS: 36415; 36600; 71045; 71046; 80048; 80053; 82375; 82805; 83050; 83735; 83880; 84484; 85025; 85027; 87081; 93005; 94002; 94003; 94640; 94660; 96374; 99291; A9270; J1650; J1815; J1940; J2920; J2930; J3475; J7512

== ENCOUNTER 2019-04-09 10:17 | Inpatient (IN) | payer MEDICARE, MEDICAID, SELFPAY ==
[2019-04-09] VITALS (20 sets, daily range): BP systolic 113–127; BP diastolic 57–93; PULSE 73–98; RESP 15–32; TEMP 35.8–36.6; O2SAT 79–100; BMI 50.5
--- NOTE | ~2019-04-09 | XR_ITS ---
EXAMINATION: XR chest 1V portable DATE: 04/09/2019 12:27 INDICATION: Shortness of breath. TECHNIQUE: A single frontal view of the chest was obtained. COMPARISON: Chest 2 views 04/01/2019 FINDINGS: There are mild airspace opacities in the mid and lower lung zones. No pleural effusion or p neumothorax. Cardiomegaly is noted. Radiopaque foreign bodies overlying the mediastinum are likely ou tside of the patient. IMPRESSION: 1. Mild airspace opacities in the mid and lower lung zones with worsening on the right, consistent wi th atelectasis versus pneumonia. 2. Cardiomegaly. Reviewed, dictated and finalized at location B. RMINATOR TERMITE IMPRESSION: 1. Mild airspace opacities in the mid and lower lung zones with worsening on th e right, consistent with atelectasis versus pneumonia. 2. Cardiomegaly.
--- NOTE | ~2019-04-09 | XR_ITS ---
EXAMINATION: XR chest 1V portable INDICATION: Acute hypercapnic respiratory failure TECHNIQUE: Portable AP chest at 0512 hours COMPARISON: 04/11/2019 FINDINGS: The endotracheal tube ends approximately 2.1 cm above the leticia. The nasogastric tube is i n the stomach. There is stable cardiomegaly. Airspace opacities in the mid and lower lung zones persi st but have slightly improved. No definite pleural effusion or pneumothorax is identified. IMPRESSION: 1. Persistent but improved airspace opacities of the mid and lower lung zones, consistent with pulmon fabien edema and/or pneumonia. 2. Stable cardiomegaly. Reviewed, dictated and finalized at location A. ITIONAL CHINESE HERBALIST IMPRESSION: 1. Persistent but improved airspace opacities of the mid and lower lung zones, consistent with pulmonary edema and/or pneumonia. 2. Stable cardiomegaly.
--- NOTE | ~2019-04-09 | XR_ITS ---
EXAMINATION: XR chest 1V portable DATE: 04/11/2019 06:34 INDICATION: Acute hypercapnic respiratory failure. TECHNIQUE: A single frontal view of the chest was obtained. COMPARISON: Chest single view 04/10/2019 FINDINGS: Sensitivity is decreased by obesity. There are mild airspace opacities in the mid and lower lung zones. No pleural effusion or pneumothorax. Cardiomegaly is noted. The endotracheal tube tip is 2.0 cm above the leticia. The nasogastric tube tip is in the stomach. IMPRESSION: 1. Worsened mild airspace opacities in the mid and lower lung zones, consistent with pulmonary edema versus pneumonia. 2. Cardiomegaly. Reviewed, dictated and finalized at location A. TEMPERER
--- NOTE | ~2019-04-09 | XR_ITS ---
EXAMINATION: XR chest 1V portable INDICATION: Acute hypercapnic respiratory failure TECHNIQUE: Portable AP chest at 0513 hours COMPARISON: 04/12/2019 FINDINGS: The endotracheal tube ends approximately 3.5 cm above the leticia. The nasogastric tube is f ollowed as far as the stomach. Its tip is beyond the inferior margin of the radiograph. Patchy opacit ies persist in the mid and lower lung zones without significant change. No definite pleural effusion or pneumothorax is identified. There is stable cardiomegaly. IMPRESSION: 1. Stable airspace opacities of the mid and lower lung zones, consistent with pulmonary edema and/or pneumonia. 2. Stable cardiomegaly. Reviewed, dictated and finalized at location A. ROAD EMERGENCY SERVICES MANAGER IMPRESSION: 1. Stable airspace opacities of the mid and lower lung zones, consistent with p ulmonary edema and/or pneumonia. 2. Stable cardiomegaly.
--- NOTE | ~2019-04-09 | XR_ITS ---
EXAMINATION: XR abdomen/kub 1V DATE: 04/10/2019 01:30 INDICATION: Orogastric tube placement. TECHNIQUE: A semiupright view of the abdomen was obtained. COMPARISON: None. FINDINGS: There are no dilated loops of bowel. The nasogastric tube tip is in the stomach with proxim al side port in the distal esophagus. Surgical clips in the right upper quadrant are likely from chol ecystectomy. IMPRESSION: 1. Nasogastric tube tip in the stomach with proximal side port in the distal esophagus. 2. Normal bowel gas pattern. Reviewed, dictated and finalized at location A. GORY MANAGER IMPRESSION: 1. Nasogastric tube tip in the stomach with proximal side port in the distal es ophagus. 2. Normal bowel gas pattern.
--- NOTE | ~2019-04-09 | XR_ITS ---
EXAMINATION: XR abdomen/kub 1V DATE: 04/10/2019 05:40 INDICATION: Repositioned orogastric tube. TECHNIQUE: A semiupright view of the abdomen was obtained. COMPARISON: Abdomen single view at 1:25 AM FINDINGS: There are no dilated loops of bowel. The nasogastric tube tip is in the stomach. IMPRESSION: 1. Nasogastric tube tip in the stomach. Reviewed, dictated and finalized at location A. INTERMEDIATE
--- NOTE | ~2019-04-09 | XR_ITS ---
EXAMINATION: XR chest ET placement DATE: 04/10/2019 01:33 INDICATION: Shortness of breath. TECHNIQUE: A single frontal view of the chest was obtained. COMPARISON: Chest single view 04/09/2019, chest 2 views 04/01/2019 FINDINGS: There are mild airspace opacities in right mid and upper lung zones and left lower lung zon e. No pleural effusion or pneumothorax. Cardiomegaly is noted. The endotracheal tube tip is 2.8 cm ab ove the leticia. IMPRESSION: 1. Mild airspace opacities in right mid and upper lung zones and left lower lung zone with worsening on the right, consistent with atelectasis versus pneumonia. 2. Cardiomegaly. Reviewed, dictated and finalized at location A. ER INSPECTOR IMPRESSION: 1. Mild airspace opacities in right mid and upper lung zones and left lower eros g zone with worsening on the right, consistent with atelectasis versus pneumoni a. 2. Cardiomegaly.
--- NOTE | ~2019-04-09 | XR_ITS ---
EXAMINATION: XR chest 1V portable INDICATION: Acute hypercapnic respiratory failure TECHNIQUE: Portable AP chest at 0529 hours COMPARISON: 04/13/2019 FINDINGS: The endotracheal tube ends 2.0 cm above the leticia. The nasogastric tube is in the stomach. There is stable cardiomegaly. Patchy airspace opacities of the mid and lower lung zones persist with slight improvement in the left lung base. No pleural effusion or pneumothorax is identified. IMPRESSION: 1. Patchy airspace opacities with slight improvement in the left lung base, consistent with pulmonary edema and/or pneumonia. 2. Stable cardiomegaly. Reviewed, dictated and finalized at location A. GY CONSERVATION DIRECTOR IMPRESSION: 1. Patchy airspace opacities with slight improvement in the left lung base, con sistent with pulmonary edema and/or pneumonia. 2. Stable cardiomegaly.
--- NOTE | ~2019-04-09 | XR_ITS ---
EXAMINATION: XR chest 1V portable INDICATION: Acute hypercapnic respiratory failure TECHNIQUE: Portable AP chest at 0439 hours COMPARISON: 04/14/2019 FINDINGS: The endotracheal tube ends approximately 2.6 cm above the leticia. The nasogastric tube is f ollowed as far as the stomach. Its tip is beyond the inferior margin of the radiograph. There are pat catrina airspace opacities of the lung bases with slight worsening on the left. No pleural effusion or pn eumothorax is identified. There is stable cardiomegaly. IMPRESSION: 1. Patchy airspace opacities of the lung bases with slight worsening on the left,, consistent with pu lmonary edema and/or pneumonia and/or atelectasis. 2. Stable cardiomegaly. Reviewed, dictated and finalized at location A. RMATION SYSTEMS AUDIT MANAGER IMPRESSION: 1. Patchy airspace opacities of the lung bases with slight worsening on the lef t,, consistent with pulmonary edema and/or pneumonia and/or atelectasis. 2. Stable cardiomegaly.
--- NOTE | 2019-04-09 10:17 | ED.SOB ---
HPI - SOB/Dyspnea General Chief Complaint: Shortness of Breath/Dyspnea Stated Complaint: resp distress Time Seen by Provider: 04/09/19 10:17 Source: patient and RN notes reviewed Mode of arrival: EMS Limitations: clinical condition History of Present Illness HPI Narrative: Pt is a 59 y/o female who presents to the ED, via EMS, with c/o SOB which began prior to arrival to the ED. EMS states the pt is from [facility]. EMS reports the pt was seen here last week. EMS reports the pt's BLE edema has worsened and she has not been able to move as much. Pt also is exhibiting wheezing according to EMS. EMS states there must be fluid present, but they were unable to hear anything when they tried to listen. EMS reports the pt's capnography was 70 upon their arrival to the scene. EMS reports placing a BiPAP on the pt en route to the ED. The pt has been taking her diuretics as prescribed to her. Pt has a PMHx of COPD. A complete HPI is limited due to the pt's clinical condition. MD elicited complaint: shortness of breath Pertinent past history: COPD Onset (ago): hour(s) (prior to arrival to the ED) Known history of: COPD Associated symptoms: wheezing and other (BLE edema) Related Data Home Medications Medication Instructions Recorded Confirmed albuterol sulfate 2 puff INHALATION Q4H PRN 03/19/19 03/20/19 ascorbic acid (vitamin C) 500 mg PO DAILY 03/19/19 03/20/19 insulin lispro [Humalog U-100 1 sliding scale dose SUBCUT 03/19/19 03/20/19 Insulin] USEASDIRECTD loperamide 4 mg PO BID 03/19/19 03/20/19 omeprazole 20 mg PO DAILY PRN 03/19/19 03/20/19 polyethylene glycol 3350 17 g PO DAILY PRN 03/19/19 03/20/19 ropinirole 2 mg PO BID 03/19/19 03/20/19 Lantus U-100 Insulin 40 unit SUBCUT HS 03/20/19 03/20/19 acetaminophen 650 mg PO Q6H PRN 03/20/19 03/20/19 alprazolam [Xanax] 0.25 mg PO TID PRN 03/20/19 03/20/19 bisacodyl 10 mg PO DAILY PRN 03/20/19 03/20/19 calcium carbonate [Antacid 400 mg PO TID PRN 03/20/19 03/20/19 (calcium carbonate)] carvedilol [Coreg] 25 mg PO BID 03/20/19 03/20/19 furosemide [Lasix] 40 mg PO BID 03/20/19 03/20/19 melatonin 3 mg PO HS PRN 03/20/19 03/20/19 melatonin 5 mg PO HS PRN 03/20/19 03/20/19 metformin 500 mg PO BID 03/20/19 03/20/19 Allergies Allergy/AdvReac Type Severity Reaction Status Date / Time codeine Allergy Unknown Verified 04/09/19 10:26 Penicillins Allergy Unknown Verified 04/09/19 10:26 Sulfa (Sulfonamide Allergy Unknown Verified 04/09/19 10:26 Antibiotics) Review of Systems Review of Systems: Narrative: A complete ROS is limited due to the pt's clinical condition. All systems reviewed & are unremarkable except as noted in HPI and below Cardiovascular: Cardiovascular: Reports leg edema (BLE) Respiratory: Respiratory: Reports dyspnea and Reports wheezing PMFSH Past Medical History Medical History (Updated 04/09/19 @ 12:53 by Harry Cesar MD) Anemia Anxiety Bipolar 1 disorder Candidiasis Cataracts, bilateral CHF (congestive heart failure) COPD (chronic obstructive pulmonary disease) CVA (cerebral vascular accident) Depression Diabetes GERD (gastroesophageal reflux disease) Hx of Parkinson's disease Hypertension Hypothyroid IDDM (insulin dependent diabetes mellitus) Lymphedema Chronic BLE Obesity hypoventilation syndrome Sleep apnea Vitamin D deficiency Surgical History Surgical History (Updated 04/01/19 @ 21:09 by Asif Barreto) History of primary section Hx of bilateral cataract extraction Family History Family History (Updated 03/20/19 @ 03:28 by Yumiko Simpson RN) Mother Diabetes mellitus Alcohol abuse CHF (congestive heart failure) Heart attack Hypertension Blood clot in vein Asthma Sibling Diabetes mellitus Hypertension Social History Social History (Updated 03/19/19 @ 21:37 by Aracely Morse) Smoking packs per day: 5 Smoking cigarettes per day: 100.0 Years smoked: 40 Smoking pack-years: 2
--- NOTE | 2019-04-09 10:20 | ECG_ITS ---
Measurements Intervals [place] Rate: 80 P: 24 MN: 146 QRS: -48 QRSD: 165 T: 9 QT: 407 QTc: 471 Interpretive Statements SINUS RHYTHM POSSIBLE LEFT ATRIAL ENLARGEMENT RIGHT BUNDLE BRANCH BLOCK LEFT ANTERIOR FASCICULAR BLOCK BASELINE ARTIFACT- I, II, AVR, V1 ABNORMAL ECG Electronically Signed On 04-09-2019 11:04:57 LOOM CHANGEOVER OPERATOR by Mikey Garza D.O.
[2019-04-09 10:48] LABS: Alveolar/Arterial O2 Gradient 130.3 mmHg; Base Excess ABG 8.3 mEq/l (+/-2.0); Carboxyhemoglobin 0.5 % THb (0-2.0); Fractional Inspired Oxygen 70 %; HCO3 ABG 38.1 mEq/l (22.0-26.0); Hematocrit 33.5 % (37.0-47.0); Hemoglobin 9.4 g/dL (12.0-15.0); Mean Corpuscular HGB Conc 28.1 g/dl (32-36); Mean Corpuscular Hemoglobin 29.2 pg (26-34); Mean Platelet Volume 9.9 fl (7.4-10.4); Oxygen Content ABG 14.3 %vol (16.0-22.0); Oxygen Saturation ABG 99.5 % (95.0-100.0); Oxyhemoglobin 97.9 % THb (90.0-100.0); PO2 FiO2 Ratio Arterial Blood 3.86 %; Platelet Count Result 188 k/mm3 (150-375); Red Blood Count 3.22 M/mm3 (4.2-5.4); Red Cell Distribution Width 14.8 % (11.5-14.5); Reduced Hemoglobin 1.6 %THb (0-5.0); Total Hemoglobin 9.9 g/dL (12.0-18.0); White Blood Count 5.7 K/mm3 (4.5-10.0)
[2019-04-09 10:55] LABS: INR 0.9; Partial Thromboplastin Time 29.6 SECONDS (22.3-36.8); Prothrombin Time 11.9 Seconds (11.1-14.7)
[2019-04-09 10:58] LABS: Blood Urea Nitrogen 42 mg/dL (7-17); Calcium 8.5 mg/dL (8.4-10.2); Carbon Dioxide > 40 mmol/L (22-30); Chloride 88 mmol/L (98-107); Estimated Glomerular Filt Rate 36; Glucose 118 mg/dL (65-105); Platelet Estimate Adequate (Adequate); Potassium 4.5 mmol/L (3.4-5.0); Sodium 138 mmol/L (137-145)
[2019-04-09 11:02] LABS: Device NON-INVASIVE VENT; Modified Allen's Test Pass; PCO2 ABG 91.9 mmHg (35.0-45.0); Site Drawn RIGHT RADIAL; pH ABG 7.235 (7.350-7.450)
[2019-04-09 11:03] LABS: Non-Invasive Expiratory Pressure 8 CMH2O; Non-Invasive Inspiratory Pressure 16 CMH2O; Non-Invasive Vent Rate 15 /MIN
[2019-04-09 11:08] LABS: Stomatocytes 1+ (NORMAL)
[2019-04-09 11:09] LABS: NT Pro B Type Natriuretic Pept 1630 PG/ML (5-100); Troponin I < 0.012 ng/mL (0.000-0.034)
[2019-04-09] MEDS: FUROSEMIDE INJ 40 MG/4 ML VIAL IV PUSH ×2 (12:05→20:10)
[2019-04-09 12:14] LABS: Alveolar/Arterial O2 Gradient 69.5 mmHg; Base Excess ABG 8.1 mEq/l (+/-2.0); Carboxyhemoglobin 0.7 % THb (0-2.0); Fractional Inspired Oxygen 40 %; HCO3 ABG 37.3 mEq/l (22.0-26.0); Methemoglobin ABG 0.3 %THb (0-1.5); Oxygen Content ABG 13.8 %vol (16.0-22.0); Oxygen Saturation ABG 97.5 % (95.0-100.0); PO2 ABG 118.2 mmHg (80.0-100.0); PO2 FiO2 Ratio Arterial Blood 2.95 %; Total Hemoglobin 10.1 g/dL (12.0-18.0)
[2019-04-09 12:16] LABS: Device NON-INVASIVE VENT; Modified Allen's Test Pass; Non-Invasive Expiratory Pressure 10 CMH2O; Non-Invasive Inspiratory Pressure 20 CMH2O; Non-Invasive Vent Rate 20 /MIN; PCO2 ABG 84.8 mmHg (35.0-45.0); Site Drawn RIGHT RADIAL; pH ABG 7.261 (7.350-7.450)
--- NOTE | 2019-04-09 14:21 | ADMGEN ---
This patient, Sameera Chilel, was admitted to IMU Room 206-01 on 04-09-2019 at 1300. Patient/family oriented to hospital policies and general routines including ID bracelet, bed and alarms, visiting hours, pain management, procedures, bathroom and other care routines, personal items, smoking policy, room service/diet, and visiting hours. Valuables list has been completed. Information on how to activate the Rapid Response Team has been discussed. Patient/Family are encouraged to report perceived risks to care and to ask questions if they do not understand what they are told or what they should do.
--- NOTE | 2019-04-09 14:22 | PM.IMHP ---
H&P: HPI History of Present Illness Chief complaint: Hypercapnic respiratory failure/CHF Narrative: Sameera Chilel is a 59 year old female who has a past medical history of having COPD. She is from [facility]. Her last admission she was 03/20/19 for acute on chronic respiratory failure with hypercapnia. The patient he is here today with similar symptoms. She became short of breath prior to arrival of the ambulance and reported increase in bilateral lower extremity edema and has not been able to move much. O2 saturations were noted to be in the 70 percentile upon arrival to the scene. EMS placed BiPAP on the patient and route. Patient has been taking her diuretics as prescribed. The patient has been wheezing as well. Date of admission 04/09/2019. Supervising physician is Dr. rincon. Patient is currently on a BiPAP machine pH 7.26. CO2 84.8. Patient was given IV Lasix. Chest x-ray was showing mild airspace opacities in the mid and lower lung zones with worsening on the right consistent with atelectasis versus pneumonia. Cardiomegaly. The patient is being admitted for acute on chronic respiratory failure with congestive heart failure. Review of Systems Review of Systems: All systems reviewed & are unremarkable except as noted in HPI and below Constitutional: Constitutional: Reports as per HPI and Reports no additional constitutional complaints Eyes: Eyes: Reports as per HPI and Reports no additional eye complaints ENT: Reports system reviewed and no additional complaints, except as documented and Reports hearing normal Cardiovascular: Cardiovascular: Reports no additional cardiovascular complaints Respiratory: Respiratory: Reports no additional respiratory complaints and Reports no additional respiratory complaints Gastrointestinal: Gastrointestinal: Reports as per HPI and Reports no additional gastrointestinal complaints Musculoskeletal: Musculoskeletal: Reports no additional musculoskeletal complaints Integumentary/Breasts: Skin/Breast: Reports system reviewed and no additional complaints, except as docu and Reports as per HPI Neurologic: Reports system reviewed and no additional complaints, except as documented, Reports as per HPI and Reports Normal hearing present Psychiatric: Psychiatric: Reports no additional psychiatric complaints and Reports as per HPI Endocrine: Endocrine: Reports no additional endocrine complaints Hematologic/Lymphatic: Hematologic/Lymphatic: Reports no additional hematologic/lymphatic complaints Allergic/Immunologic: Allergic/Immunologic: Reports no additional allergic/immunologic complaints [facility] Past Medical History Medical History (Updated 04/09/19 @ 14:41 by Erica Hernandez NP) Anemia Anxiety Bipolar 1 disorder Candidiasis Cataracts, bilateral CHF (congestive heart failure) COPD (chronic obstructive pulmonary disease) CVA (cerebral vascular accident) Depression Diabetes GERD (gastroesophageal reflux disease) Hx of Parkinson's disease Hypertension Hypothyroid IDDM (insulin dependent diabetes mellitus) Lymphedema Chronic BLE Obesity hypoventilation syndrome Sleep apnea Vitamin D deficiency Surgical History Surgical History (Updated 04/09/19 @ 14:41 by Erica Hernandez NP) History of primary section times 2 Hx of bilateral cataract extraction Hx of cholecystectomy Family History Family History (Updated 04/09/19 @ 14:44 by Erica Hernandez NP) Mother Diabetes mellitus Alcohol abuse CHF (congestive heart failure) Heart attack Hypertension Blood clot in vein Asthma Heart disease Sibling Diabetes mellitus Hypertension Father Unknown family medical history Social History Social History (Updated 04/09/19 @ 14:45 by Erica Hernandez NP) Social History: She lives at [facility] Smoking packs per day: 5 Smoking cigarettes per day: 100.0 Years smoked: 40 Smoking pack-years: 200.00
[2019-04-09 16:11] LABS: Base Excess ABG 14.1 mEq/l (+/-2.0); Fractional Inspired Oxygen 40 %; HCO3 ABG 44.1 mEq/l (22.0-26.0); Oxygen Content ABG 13.1 %vol (16.0-22.0); Oxygen Saturation ABG 95.6 % (95.0-100.0); Oxyhemoglobin 94.8 % THb (90.0-100.0); PO2 ABG 95.3 mmHg (80.0-100.0); PO2 FiO2 Ratio Arterial Blood 2.38 %; Total Hemoglobin 9.7 g/dL (12.0-18.0)
[2019-04-09 16:18] LABS: PCO2 ABG 100.8 mmHg (35.0-45.0); pH ABG 7.259 (7.350-7.450)
[2019-04-09 16:19] LABS: Device NON-INVASIVE VENT; Site Drawn LEFT BRACHIAL
[2019-04-09 16:22] LABS: Non-Invasive Expiratory Pressure 10 CMH2O; Non-Invasive Inspiratory Pressure 20 CMH2O; Non-Invasive Vent Rate 20 /MIN
[2019-04-09] MEDS: methylPREDNISolone SOD SUCC 125 MG VIAL 60 MG IV PUSH ×2 (16:56→23:37)
[2019-04-09 17:12] LABS: Glucose Point of Care 104 (65-105)
[2019-04-09 20:27] LABS: Glucose Point of Care 174 (65-105)
[2019-04-09] MEDS: INSULIN GLARGINE (*BKC) 100 UNITS/ML 20 UNITS SUB-Q (21:20)
[2019-04-09] MEDS: TOLNAFTATE 1% POWDER 45 GM BTL 1 APPLIC TOPICAL (21:21)
[2019-04-09 23:47] LABS: Alveolar/Arterial O2 Gradient 88.9 mmHg; Base Excess ABG 13.6 mEq/l (+/-2.0); Fractional Inspired Oxygen 40 %; HCO3 ABG 43.4 mEq/l (22.0-26.0); Oxygen Content ABG 13.2 %vol (16.0-22.0); Oxygen Saturation ABG 94.6 % (95.0-100.0); PO2 ABG 86.5 mmHg (80.0-100.0); PO2 FiO2 Ratio Arterial Blood 2.16 %; Total Hemoglobin 9.9 g/dL (12.0-18.0)
[2019-04-09 23:48] LABS: Device NON-INVASIVE VENT; Modified Allen's Test Pass; PCO2 ABG 95.5 mmHg (35.0-45.0); Site Drawn RIGHT BRACHIAL; pH ABG 7.275 (7.350-7.450)
[2019-04-09 23:49] LABS: Non-Invasive Expiratory Pressure 10 CMH2O; Non-Invasive Inspiratory Pressure 24 CMH2O; Non-Invasive Vent Rate 20 /MIN
[2019-04-10] VITALS (27 sets, daily range): BP systolic 121–159; BP diastolic 64–88; PULSE 70–88; RESP 14–20; TEMP 36.6–37.3; O2SAT 92–100
--- NOTE | 2019-04-10 00:27 | PC.NURSE ---
Pt requested that her sister be notified that she is moving into the ICU for intubation. Message left for pt's sister, Radhika Whittington [phone], to call back for more information regarding pt's condition.
[2019-04-10] MEDS: ETOMIDATE 20 MG/10 ML AMPUL IV PUSH (01:02)
[2019-04-10] MEDS: SUCCINYLCHOLINE CHLORIDE 20 MG/ML 10 ML VIAL 150 MG IV PUSH (01:02)
--- NOTE | 2019-04-10 01:28 | P.PCNBED_ITS ---
Procedures Intubation: Intubation Date: 04/10/19 Intubation Time: 01:28 A pre- procedural Time-Out was completed immediately before starting the procedure and confirmed: Patient Identification, Site, Procedure, Patient Position and the Availability of Requisite Equipment: Yes Sedative: etomidate Mg given: 20 Paralytic: succinylcholine Mg given: 150 Laryngoscope: Ozzie ET tube size: 7.5 Tube secured depth (cm): 23 Tube secured location: teeth Tube placement confirmation: visualized tube passing through cords, equal breath sounds bilaterally, no breath sounds over epigastrium and confirmation by capnometry Patient tolerated procedure: well Intubation complications: none Additional comments: Date of service of procedure was 04/10/2019 at 01:00 hrs
[2019-04-10] MEDS: MIDAZOLAM HCL 50 MG in DEXTROSE 5% 90 ML IV CONT (01:30)
[2019-04-10] MEDS: carvediloL 25 MG TABLET PO (01:45)
[2019-04-10] MEDS: AMITRIPTYLINE HCL 25 MG TABLET 50 MG PO (01:45)
[2019-04-10] MEDS: MIDAZOLAM HCL 2 MG/2 ML VIAL 4 MG IV PUSH (01:57)
[2019-04-10] MEDS: MIDAZOLAM HCL 2 MG/2 ML VIAL IV PUSH (01:57)
[2019-04-10] MEDS: PROPOFOL IV EMULSION 100 ML 3.8 MG IV CONT (02:09)
[2019-04-10 03:01] LABS: Alveolar/Arterial O2 Gradient 257.9 mmHg; Base Excess ABG 13.9 mEq/l (+/-2.0); Fractional Inspired Oxygen 60 %; HCO3 ABG 39.5 mEq/l (22.0-26.0); Oxygen Content ABG 13.8 %vol (16.0-22.0); Oxygen Saturation ABG 98.1 % (95.0-100.0); Oxyhemoglobin 96.5 % THb (90.0-100.0); PCO2 ABG 55.9 mmHg (35.0-45.0); PO2 ABG 108.4 mmHg (80.0-100.0); PO2 FiO2 Ratio Arterial Blood 1.81 %; pH ABG 7.467 (7.350-7.450)
[2019-04-10 03:02] LABS: Arterial Blood Gas Ventilator rate 20 /MIN; Device VENTILATOR; Modified Allen's Test Pass; Site Drawn RIGHT RADIAL
[2019-04-10 03:03] LABS: Arterial Blood Gas PEEP 7 cmH2O; Arterial Blood Gas Tidal Volume 350 ml; Arterial Blood Gas Vent Mode CMV
--- NOTE | 2019-04-10 03:07 | PC.NURSE ---
This patient, Sameera Chilel, was received from [facility] on 04/10/19 at approximately 0035. Patient oriented to unit policies and routines
[2019-04-10] MEDS: methylPREDNISolone SOD SUCC 125 MG VIAL 60 MG IV PUSH ×3 (04:54→17:48)
[2019-04-10 06:42] LABS: Alanine Aminotransferase 21 U/L (4-35); Albumin Level 3.4 g/dL (3.5-5.1); Alkaline Phosphatase 103 U/L (38-126); Aspartate Amino Transferase 27 U/L (14-36); Bilirubin,Total 0.5 mg/dL (0.2-1.3); Blood Urea Nitrogen 43 mg/dL (7-17); CRP 4.7 mg/dL (<1.0); Calcium 8.8 mg/dL (8.4-10.2); Carbon Dioxide 37 mmol/L (22-30); Chloride 86 mmol/L (98-107); Estimated CRCL calculation 58 ml/min; Estimated Glomerular Filt Rate 46; Glucose 242 mg/dL (65-105); Magnesium 1.2 mg/dL (1.6-2.3); Potassium 4.3 mmol/L (3.4-5.0); Sodium 136 mmol/L (137-145)
[2019-04-10 07:41] LABS: Glucose Point of Care 202 (65-105)
[2019-04-10 08:32] LABS: Basophils Percent Auto 0.2 % (0.2-1.2); Hematocrit 32.4 % (37.0-47.0); Hemoglobin 9.5 g/dL (12.0-15.0); Immature Granulocyte Absolute 0.09 K/mm3 (0.00-0.031); Immature Granulocyte Percent A 1.6 % (0-0.5); Lymphocytes Percent Auto 17.3 % (18.3-44.2); Mean Corpuscular HGB Conc 29.3 g/dl (32-36); Mean Corpuscular Hemoglobin 29.5 pg (26-34); Mean Corpuscular Volume 100.6 fl (80-100); Mean Platelet Volume 10.3 fl (7.4-10.4); Monocytes Absolute Auto 0.1 K/mm3 (0.1-0.6); Monocytes Percent Auto 1.7 % (2.6-8.5); Neutrophils Absolute Auto 4.6 K/mm3 (1.3-6.7); Neutrophils Percent Auto 79.2 % (45.5-73.1); Nucleated Red Blood Cells Absolute Auto 0.1 K/mm3 (0.0-0.012); Platelet Count Result 181 k/mm3 (150-375); Red Blood Count 3.22 M/mm3 (4.2-5.4); Red Cell Distribution Width 14.7 % (11.5-14.5); White Blood Count 5.8 K/mm3 (4.5-10.0)
[2019-04-10 08:43] LABS: Magnesium 1.2 mg/dL (1.6-2.3); Phosphorus 3.5 mg/dL (2.5-4.5)
[2019-04-10] MEDS: MAGNESIUM SULFATE 3GM/D5W100ML 3 GM/100 ML BAG IVPB (09:10)
--- NOTE | 2019-04-10 09:30 | PM.IMPN ---
Progress Note: A&P Assessment and Plan (1) Acute hypercapnic respiratory failure: Code(s): J96.02 - Acute respiratory failure with hypercapnia Status: Acute Assessment and Plan: Required intubation overnight. Now sedated on ventilator. Ventilator management per maintenance planner. Continue IV antibiotics. Remains on IV Lasix and IV steroids. Add nebulizer treatments. Will continue to monitor. MRSA culture pending. (2) Diastolic dysfunction with acute on chronic heart failure: Code(s): I50.33 - Acute on chronic diastolic (congestive) heart failure Status: Chronic Assessment and Plan: Echocardiogram ordered. Will continue diuresis with IV Lasix. Continue Coreg. Continue to monitor. (3) COPD exacerbation: Code(s): J44.1 - Chronic obstructive pulmonary disease with (acute) exacerbation Status: Chronic Assessment and Plan: On ventilator and as noted above. Continue nebulizer treatments and IV steroids. (4) Diabetes: Qualifiers: Diabetes mellitus type: type 2 Diabetes mellitus salvage determiner insulin use: with jail use Diabetes mellitus complication status: with hyperglycemia Qualified Code(s): E11.65 - Type 2 diabetes mellitus with hyperglycemia; Z79.4 - terminal manager (current) use of insulin Code(s): E11.9 - Type 2 diabetes mellitus without complications Status: Chronic Assessment and Plan: Hemoglobin A1c 8.0. Glucose reviewed on 04/10/2019 and does still remain elevated. Continue Lantus and sliding scale insulin. Will continue to monitor and adjust treatment as needed. (5) Hypertension: Qualifiers: Hypertension type: essential hypertension Qualified Code(s): I10 - Essential (primary) hypertension Code(s): I10 - Essential (primary) hypertension Status: Chronic Assessment and Plan: Blood pressure reviewed on 04/10/2019 and stable. Will continue to monitor on Coreg with diuresis. (6) Hypothyroid: Qualifiers: Hypothyroidism type: unspecified Qualified Code(s): E03.9 - Hypothyroidism, unspecified Code(s): E03.9 - Hypothyroidism, unspecified Status: Chronic Assessment and Plan: TSH within normal range. Will continue levothyroxine. (7) Sleep apnea: Qualifiers: Sleep apnea type: obstructive Qualified Code(s): G47.33 - Obstructive sleep apnea (adult) (pediatric) Code(s): G47.30 - Sleep apnea, unspecified Status: Chronic Assessment and Plan: On CPAP at home. Currently intubated as noted above. (8) Morbid (severe) obesity due to excess calories: Code(s): E66.01 - Morbid (severe) obesity due to excess calories Status: Chronic Assessment and Plan: Will reinforce healthy lifestyle once able. (9) DVT prophylaxis: Code(s): Z29.9 - Encounter for prophylactic measures, unspecified Status: Acute Assessment and Plan: SCDs. Time Spent With Patient Time with patient: 15 - 25 minutes Subjective Date/time seen: 04/10/19 09:30 Interval history: Date of Service: 04/10/2019. Admitted with acute respiratory failure, acute on chronic CHF and COPD exacerbation. Required intubation overnight. Now sedated on ventilator. Review of Systems Review of Systems: ROS unobtainable: due to endotracheal tube Genitourinary: Comments: catheter in place Exam Const: General: no acute distress HENMT: Other: ET tube in place; OG in place Neck: Neck: supple Resp: Auscultation: no wheezes and diminished lung sounds Cardio: Rate: regular rate Rhythm: regular rhythm GI: Inspection: non-distended GI Palp: Yes soft Auscultation: normal bowel sounds Urinary Catheter: Urinary Catheter: patent and draining and urine clear Skin: General skin exam: no rashes or lesions noted Neuro: Other: sedated and unable to assess Extrem: General: edema (1+ lower extremities) Psych: Other: not agitated Objective Data Vital Signs
[2019-04-10] MEDS: FUROSEMIDE INJ 40 MG/4 ML VIAL IV PUSH ×2 (09:41→20:31)
[2019-04-10] MEDS: TOLNAFTATE 1% POWDER 45 GM BTL 1 APPLIC TOPICAL ×2 (11:24→20:31)
[2019-04-10] MEDS: ENOXAPARIN 40 MG/0.4 ML SYRINGE SUB-Q (11:25)
[2019-04-10] MEDS: FAMOTIDINE 20 MG TABLET PO ×2 (11:25→20:31)
--- NOTE | 2019-04-10 11:45 | WPDCNINT ---
Assessment and Plan Assessment and plan (1) Acute and chronic respiratory failure with hypercapnia: Code(s): J96.22 - Acute and chronic respiratory failure with hypercapnia Status: Acute Assessment and Plan: Patient presented with shortness of breath, hypercapnic respiratory failure, feel BiPAP. Intubated on 04/10/2019 - likely related to pneumonia, CHF - patient started on azithromycin and ceftriaxone - continue mechanical ventilation, CMV mode, wean FiO2 as tolerated - sedated with fentanyl and Versed infusion, maintain RASS of 0- 2 (2) CHF (congestive heart failure): Qualifiers: Heart failure chronicity: unspecified Heart failure type: unspecified Qualified Code(s): I50.9 - Heart failure, unspecified Code(s): I50.9 - Heart failure, unspecified Status: Chronic Assessment and Plan: history of congestive heart failure, continue Lasix and carvedilol. Blood pressures have been stable - obtain echocardiogram - replace magnesium (3) Diabetes: Code(s): E11.9 - Type 2 diabetes mellitus without complications Status: Chronic Assessment and Plan: continue Accu-Cheks and sliding scale insulin (4) Morbid (severe) obesity due to excess calories: Code(s): E66.01 - Morbid (severe) obesity due to excess calories Status: Chronic Assessment and Plan: chronic (5) Sleep apnea: Code(s): G47.30 - Sleep apnea, unspecified Status: Chronic Assessment and Plan: patient may require CPAP/ BiPAP once extubated (6) Hypothyroid: Code(s): E03.9 - Hypothyroidism, unspecified Status: Chronic Assessment and Plan: continue levothyroxine (7) COPD (chronic obstructive pulmonary disease): Code(s): J44.9 - Chronic obstructive pulmonary disease, unspecified Status: Chronic Assessment and Plan: continue bronchodilators, steroids, antibiotics and mechanical ventilation for now (8) Hx of Parkinson's disease: Code(s): Z86.69 - Personal history of other diseases of the nervous system and sense organs Status: Chronic Assessment and Plan: continue ropinirole Additional Plan will discuss with family when available. code status: Full code Critical care time spent: 38 minutes Due to a high probability of clinically significant, life threatening deterioration, the patient required my highest level of preparedness to intervene emergently and I personally spent this critical care time directly and personally managing the patient. This critical care time included obtaining a history; examining the patient; pulse oximetry; ordering and review of studies; arranging urgent treatment with development of a management plan; evaluation of patient's response to treatment; frequent reassessment; and discussions with other providers. It was exclusive of separately billable procedures and treating other patients and teaching time. Please see Assessment and Plan section and the rest of the note for further information on patient assessment and treatment Air Tank Assembler Consult Note Consult date: 04/10/19 Time Seen: 07:09 Reason for consult: Acute hypercapnic respiratory failure, CHF, pneumonia HPI: Sameera Chilel is a 59 year old female with significant past medical history of COPD, congestive heart failure, CVA, GERD, depression, diabetes, history of Parkinson's disease, essential hypertension, hypothyroidism, obesity hypoventilation syndrome, sleep apnea, bipolar disorder presented the ED on 04/09/2019 from [facility] with increasing shortness of breath and bilateral lower extremity edema. O2 sats were noted to be 70% on arrival to the ED. Patient was placed on the BiPAP As initial blood gases were 7.23/91/270/38/99% on a BiPAP setting of 16/8. The BiPAP settings were increased to maximum of 24/10 with worsening pCO2. This was decided to intubate the patient who was in
[2019-04-10] MEDS: MIDAZOLAM HCL 50 MG in DEXTROSE 5% 90 ML 6 MG IV CONT (12:05)
[2019-04-10] MEDS: PROPOFOL IV EMULSION 100 ML 11.3 MG IV CONT (12:06)
[2019-04-10] MEDS: INSULIN ASPART (*BKC) 100 UNITS/ML SUB-Q ×2 (12:08→17:49)
[2019-04-10 12:09] LABS: Glucose Point of Care 264 (65-105)
[2019-04-10] MEDS: ASCORBIC ACID 500 MG TABLET PO (12:14)
[2019-04-10] MEDS: FERROUS SULFATE 324 MG TABLET PO (12:14)
[2019-04-10] MEDS: ASPIRIN 81 MG ENTERIC TABLET PO (12:14)
[2019-04-10] MEDS: ALBUTEROL SULFATE NEB 2.5 MG/0.5 ML INH 5 MG INHALATION ×2 (15:02→20:05)
[2019-04-10] MEDS: IPRATROPIUM BR 0.02% INH SOLN 0.5 MG/2.5 ML VIAL INHALATION ×2 (15:02→20:05)
[2019-04-10 17:28] LABS: Glucose Point of Care 230 (65-105)
[2019-04-10] MEDS: INSULIN GLARGINE (*BKC) 100 UNITS/ML 20 UNITS SUB-Q (20:32)
[2019-04-10 20:46] LABS: Glucose Point of Care 245 (65-105)
[2019-04-10] MEDS: PROPOFOL IV EMULSION 100 ML 7.5 MG IV CONT (23:08)
[2019-04-11] VITALS (27 sets, daily range): BP systolic 138–163; BP diastolic 68–95; PULSE 60–74; RESP 14–16; TEMP 36.5–36.9; O2SAT 96–100
[2019-04-11] MEDS: methylPREDNISolone SOD SUCC 125 MG VIAL 60 MG IV PUSH ×5 (00:42→23:05)
[2019-04-11 00:48] LABS: Glucose Point of Care 299 (65-105)
[2019-04-11] MEDS: INSULIN ASPART (*BKC) 100 UNITS/ML SUB-Q ×5 (01:36→22:59)
[2019-04-11] MEDS: ALBUTEROL SULFATE NEB 2.5 MG/0.5 ML INH 5 MG INHALATION ×4 (02:00→20:08)
[2019-04-11] MEDS: IPRATROPIUM BR 0.02% INH SOLN 0.5 MG/2.5 ML VIAL INHALATION ×4 (02:00→20:08)
[2019-04-11 04:24] LABS: Alveolar/Arterial O2 Gradient 122.5 mmHg; Base Excess ABG 15.9 mEq/l (+/-2.0); Carboxyhemoglobin 0.1 % THb (0-2.0); Fractional Inspired Oxygen 35 %; Methemoglobin ABG 0.3 %THb (0-1.5); Oxygen Content ABG 14.2 %vol (16.0-22.0); Oxyhemoglobin 94.1 % THb (90.0-100.0); PCO2 ABG 46.9 mmHg (35.0-45.0); PO2 ABG 72.5 mmHg (80.0-100.0); PO2 FiO2 Ratio Arterial Blood 2.07 %; Reduced Hemoglobin 5.5 %THb (0-5.0); Total Hemoglobin 10.7 g/dL (12.0-18.0)
[2019-04-11 04:25] LABS: Modified Allen's Test Pass; Site Drawn LEFT RADIAL; pH ABG 7.549 (7.350-7.450)
[2019-04-11 04:26] LABS: Arterial Blood Gas Vent Mode CMV; Arterial Blood Gas Ventilator rate 16 /MIN; Device VENTILATOR
[2019-04-11 04:27] LABS: Arterial Blood Gas Minute Volume 5 LPM; Arterial Blood Gas PEEP 7 cmH2O; Arterial Blood Gas Tidal Volume 350 ml
[2019-04-11 05:14] LABS: Hematocrit 32.3 % (37.0-47.0); Mean Corpuscular Hemoglobin 30.1 pg (26-34); Mean Corpuscular Volume 97.3 fl (80-100); Mean Platelet Volume 10.4 fl (7.4-10.4); Platelet Count Result 166 k/mm3 (150-375); Red Blood Count 3.32 M/mm3 (4.2-5.4); Red Cell Distribution Width 15.5 % (11.5-14.5); White Blood Count 11.4 K/mm3 (4.5-10.0)
[2019-04-11 05:28] LABS: Lactic Acid 2.9 mmol/L (0.7-2.1)
[2019-04-11 05:31] LABS: Blood Urea Nitrogen 45 mg/dL (7-17); CRP 3.5 mg/dL (<1.0); Calcium 8.7 mg/dL (8.4-10.2); Carbon Dioxide 35 mmol/L (22-30); Chloride 85 mmol/L (98-107); Estimated CRCL calculation 65 ml/min; Estimated Glomerular Filt Rate 51; Glucose 289 mg/dL (65-105); Magnesium 1.9 mg/dL (1.6-2.3); Phosphorus 3.2 mg/dL (2.5-4.5); Potassium 3.6 mmol/L (3.4-5.0); Sodium 133 mmol/L (137-145)
[2019-04-11] MEDS: MIDAZOLAM HCL 50 MG in DEXTROSE 5% 90 ML 6 MG IV CONT ×2 (06:25→22:56)
[2019-04-11 08:48] LABS: Glucose Point of Care 274 (65-105)
--- NOTE | 2019-04-11 08:49 | PM.IMPN ---
Progress Note: A&P Assessment and Plan (1) Acute hypercapnic respiratory failure: Code(s): J96.02 - Acute respiratory failure with hypercapnia Status: Acute Assessment and Plan: Now remains sedated on ventilator but will open eyes. Ventilator management per cardiovascular lab director. Continue IV antibiotics. Remains on IV Lasix and IV steroids. Continue nebulizer treatments. Will continue to monitor. MRSA nasal swab negative. Making some progress. Will continue to monitor. Discussed with cardiovascular lab director. Tube feedings planned to start today for better nutrition. (2) Diastolic dysfunction with acute on chronic heart failure: Code(s): I50.33 - Acute on chronic diastolic (congestive) heart failure Status: Chronic Assessment and Plan: Echocardiogram ordered and pending. Chest x-ray today still with airspace opacities but making progress. Will continue diuresis with IV Lasix. Continue Coreg. Continue to monitor. (3) COPD exacerbation: Code(s): J44.1 - Chronic obstructive pulmonary disease with (acute) exacerbation Status: Chronic Assessment and Plan: On ventilator and as noted above. Continue nebulizer treatments and IV steroids. (4) Diabetes: Qualifiers: Diabetes mellitus complication status: with hyperglycemia Diabetes mellitus nursing home insulin use: with nursing home use Diabetes mellitus type: type 2 Qualified Code(s): E11.65 - Type 2 diabetes mellitus with hyperglycemia; Z79.4 - prison (current) use of insulin Code(s): E11.9 - Type 2 diabetes mellitus without complications Status: Chronic Assessment and Plan: Hemoglobin A1c 8.0. Glucose reviewed on 04/11/2019. Blood sugars remain in 200 range. Will continue Lantus and sliding scale insulin but adjust treatment as needed. Tube feeding start today which may also affect glucose levels. Continue to monitor. (5) Hypertension: Qualifiers: Hypertension type: essential hypertension Qualified Code(s): I10 - Essential (primary) hypertension Code(s): I10 - Essential (primary) hypertension Status: Chronic Assessment and Plan: Blood pressure reviewed on 04/11/2019. Mild elevation but stable. Will continue to monitor on Coreg with diuresis. Adjust treatment as needed. (6) Hypothyroid: Qualifiers: Hypothyroidism type: unspecified Qualified Code(s): E03.9 - Hypothyroidism, unspecified Code(s): E03.9 - Hypothyroidism, unspecified Status: Chronic Assessment and Plan: TSH within normal range. Will continue levothyroxine. (7) Sleep apnea: Qualifiers: Sleep apnea type: obstructive Qualified Code(s): G47.33 - Obstructive sleep apnea (adult) (pediatric) Code(s): G47.30 - Sleep apnea, unspecified Status: Chronic Assessment and Plan: On CPAP at home. Currently intubated as noted above. (8) Morbid (severe) obesity due to excess calories: Code(s): E66.01 - Morbid (severe) obesity due to excess calories Status: Chronic Assessment and Plan: Will reinforce healthy lifestyle once able. (9) DVT prophylaxis: Code(s): Z29.9 - Encounter for prophylactic measures, unspecified Status: Acute Assessment and Plan: SCDs. Time Spent With Patient Time with patient: 15 - 25 minutes Subjective Date/time seen: 04/11/19 08:49 Interval history: Date of Service: 04/11/2019. Admitted with acute respiratory failure, acute on chronic CHF and COPD exacerbation. Required intubation 1st night of admission. Now remains sedated on ventilator. Will open eyes. Review of Systems Review of Systems: ROS unobtainable: due to endotracheal tube Exam Const: General: no acute distress HENMT: Other: ET tube in place; OG in place Neck: Neck: supple Resp: Auscultation: no wheezes and diminished lung sounds Cardio: Rate: regular rate Rhythm: regular rhythm GI: Inspection: non-distended Aus
[2019-04-11] MEDS: ASCORBIC ACID 500 MG TABLET PO (08:59)
[2019-04-11] MEDS: ASPIRIN 81 MG ENTERIC TABLET PO (08:59)
[2019-04-11] MEDS: FERROUS SULFATE 324 MG TABLET PO (09:00)
[2019-04-11] MEDS: FAMOTIDINE 20 MG TABLET PO ×2 (09:00→19:50)
[2019-04-11] MEDS: FUROSEMIDE INJ 40 MG/4 ML VIAL IV PUSH ×2 (09:00→19:50)
[2019-04-11] MEDS: ENOXAPARIN 40 MG/0.4 ML SYRINGE SUB-Q (09:00)
[2019-04-11] MEDS: INSULIN GLARGINE (*BKC) 100 UNITS/ML 8 UNITS SUB-Q (09:01)
[2019-04-11] MEDS: PROPOFOL IV EMULSION 100 ML 7.5 MG IV CONT ×2 (10:19→19:49)
--- NOTE | 2019-04-11 10:52 | WPDINTPN ---
Progress Note: A&P Assessment and Plan (1) Acute and chronic respiratory failure with hypercapnia: Code(s): J96.22 - Acute and chronic respiratory failure with hypercapnia Status: Acute Assessment and Plan: Patient presented with shortness of breath, hypercapnic respiratory failure, feel BiPAP. Intubated on 04/10/2019 - likely related to pneumonia, CHF - continue azithromycin and ceftriaxone - ABGs and chest x-ray reviewed, ventilator adjusted - continue bronchodilators - sedated with propofol, fentanyl and Versed infusion, maintain RASS of 0- 2 (2) CHF (congestive heart failure): Qualifiers: Heart failure chronicity: unspecified Heart failure type: unspecified Qualified Code(s): I50.9 - Heart failure, unspecified Code(s): I50.9 - Heart failure, unspecified Status: Chronic Assessment and Plan: history of congestive heart failure, continue Lasix and carvedilol. Blood pressures have been stable - echocardiogram has been ordered - replace potassium (3) Diabetes: Qualifiers: Diabetes mellitus type: type 2 Diabetes mellitus alf insulin use: with alf use Diabetes mellitus complication status: with hyperglycemia Qualified Code(s): E11.65 - Type 2 diabetes mellitus with hyperglycemia; Z79.4 - [facility] (current) use of insulin Code(s): E11.9 - Type 2 diabetes mellitus without complications Status: Chronic Assessment and Plan: patient hyperglycemic, likely due to steroids, increase Lantus and will continue continue Accu-Cheks and sliding scale insulin (4) Morbid (severe) obesity due to excess calories: Code(s): E66.01 - Morbid (severe) obesity due to excess calories Status: Chronic Assessment and Plan: chronic (5) Sleep apnea: Qualifiers: Sleep apnea type: obstructive Qualified Code(s): G47.33 - Obstructive sleep apnea (adult) (pediatric) Code(s): G47.30 - Sleep apnea, unspecified Status: Chronic Assessment and Plan: patient will require CPAP/ BiPAP once extubated (6) Hypothyroid: Qualifiers: Hypothyroidism type: unspecified Qualified Code(s): E03.9 - Hypothyroidism, unspecified Code(s): E03.9 - Hypothyroidism, unspecified Status: Chronic Assessment and Plan: continue levothyroxine (7) COPD (chronic obstructive pulmonary disease): Code(s): J44.9 - Chronic obstructive pulmonary disease, unspecified Status: Chronic Assessment and Plan: continue bronchodilators, steroids, antibiotics and mechanical ventilation for now (8) Hx of Parkinson's disease: Code(s): Z86.69 - Personal history of other diseases of the nervous system and sense organs Status: Chronic Assessment and Plan: continue ropinirole (9) Dietary counseling and surveillance: Code(s): Z71.3 - Dietary counseling and surveillance Status: Acute Assessment and Plan: started patient on tube feeds Additional Plan will discuss with family when available. code status: Full code Critical care time spent: 32 minutes Due to a high probability of clinically significant, life threatening deterioration, the patient required my highest level of preparedness to intervene emergently and I personally spent this critical care time directly and personally managing the patient. This critical care time included obtaining a history; examining the patient; pulse oximetry; ordering and review of studies; arranging urgent treatment with development of a management plan; evaluation of patient's response to treatment; frequent reassessment; and discussions with other providers. It was exclusive of separately billable procedures and treating other patients and teaching time. Please see Assessment and Plan section and the rest of the note for further information on patient assessment and treatment Subjective Date/time seen:
[2019-04-11] MEDS: TOLNAFTATE 1% POWDER 45 GM BTL 1 APPLIC TOPICAL ×2 (11:36→19:51)
[2019-04-11] MEDS: POTASSIUM CHLORIDE 20 MEQ PACKET (FOR LIQUID) 40 MEQ FEED TUBE (11:36)
[2019-04-11 11:51] LABS: Glucose Point of Care 322 (65-105)
[2019-04-11 17:33] LABS: Glucose Point of Care 300 (65-105)
[2019-04-11] MEDS: carvediloL 25 MG TABLET PO (19:50)
[2019-04-11] MEDS: INSULIN GLARGINE (*BKC) 100 UNITS/ML 28 UNITS SUB-Q (19:55)
[2019-04-11 19:56] LABS: Glucose Point of Care 304 (65-105)
[2019-04-11 23:06] LABS: Glucose Point of Care 331 (65-105)
[2019-04-12] VITALS (28 sets, daily range): BP systolic 127–159; BP diastolic 68–79; PULSE 63–90; RESP 12–18; TEMP 37.1–37.3; O2SAT 93–98; BMI 54.1
[2019-04-12] MEDS: ALBUTEROL SULFATE NEB 2.5 MG/0.5 ML INH 5 MG INHALATION ×4 (01:43→20:02)
[2019-04-12] MEDS: IPRATROPIUM BR 0.02% INH SOLN 0.5 MG/2.5 ML VIAL INHALATION ×4 (01:44→20:02)
[2019-04-12 04:18] LABS: Hemoglobin 9.5 g/dL (12.0-15.0); Mean Corpuscular HGB Conc 30.6 g/dl (32-36); Mean Corpuscular Hemoglobin 29.3 pg (26-34); Mean Corpuscular Volume 95.7 fl (80-100); Mean Platelet Volume 10.2 fl (7.4-10.4); Platelet Count Result 169 k/mm3 (150-375); Red Blood Count 3.24 M/mm3 (4.2-5.4); Red Cell Distribution Width 15.8 % (11.5-14.5); White Blood Count 9.3 K/mm3 (4.5-10.0)
[2019-04-12 04:30] LABS: Lactic Acid 1.5 mmol/L (0.7-2.1)
[2019-04-12 05:08] LABS: Alveolar/Arterial O2 Gradient 85.8 mmHg; Base Excess ABG 15.7 mEq/l (+/-2.0); Carboxyhemoglobin 0.9 % THb (0-2.0); Fractional Inspired Oxygen 30 %; HCO3 ABG 41.2 mEq/l (22.0-26.0); Methemoglobin ABG 0.1 %THb (0-1.5); Oxygen Content ABG 17.9 %vol (16.0-22.0); Oxygen Saturation ABG 94.3 % (95.0-100.0); PO2 ABG 65.8 mmHg (80.0-100.0); PO2 FiO2 Ratio Arterial Blood 2.19 %; pH ABG 7.509 (7.350-7.450)
[2019-04-12 05:09] LABS: Device VENTILATOR; Modified Allen's Test Pass; Site Drawn RIGHT RADIAL
[2019-04-12 05:10] LABS: Arterial Blood Gas PEEP 8 cmH2O; Arterial Blood Gas Vent Mode CMV; Arterial Blood Gas Ventilator rate 14 /MIN
[2019-04-12 05:11] LABS: Arterial Blood Gas Tidal Volume 350 ml
[2019-04-12 05:30] LABS: Blood Urea Nitrogen 55 mg/dL (7-17); Calcium 8.7 mg/dL (8.4-10.2); Carbon Dioxide 38 mmol/L (22-30); Chloride 87 mmol/L (98-107); Estimated CRCL calculation 72 ml/min; Estimated Glomerular Filt Rate 57; Glucose 354 mg/dL (65-105); Magnesium 1.8 mg/dL (1.6-2.3); Phosphorus 3.7 mg/dL (2.5-4.5); Potassium 4.1 mmol/L (3.4-5.0); Sodium 136 mmol/L (137-145)
[2019-04-12] MEDS: INSULIN ASPART (*BKC) 100 UNITS/ML SUB-Q ×3 (05:42→18:09)
[2019-04-12] MEDS: methylPREDNISolone SOD SUCC 125 MG VIAL 60 MG IV PUSH ×3 (05:44→18:09)
[2019-04-12] MEDS: LEVOTHYROXINE SODIUM 50 MCG TABLET PO (05:45)
[2019-04-12 05:47] LABS: Glucose Point of Care 323 (65-105)
--- NOTE | 2019-04-12 08:02 | PM.IMPN ---
Progress Note: A&P Assessment and Plan (1) Acute hypercapnic respiratory failure: Code(s): J96.02 - Acute respiratory failure with hypercapnia Status: Acute Assessment and Plan: Remains sedated on ventilator but will open eyes. Ventilator management per ethylene plant operator. Continue IV antibiotics. Continue IV Lasix but decrease dose with increasing BUN. Continue IV steroids. Continue nebulizer treatments. MRSA nasal swab negative. Chest xray today with persistent but improving airspace opacities. Continue to monitor. Tube feedings started on 04/11/2019. (2) Diastolic dysfunction with acute on chronic heart failure: Code(s): I50.33 - Acute on chronic diastolic (congestive) heart failure Status: Chronic Assessment and Plan: Echocardiogram ordered and still pending. Chest x-ray today still with airspace opacities but improving as noted above. Decrease IV Lasix. Continue Coreg. Continue to monitor. (3) COPD exacerbation: Code(s): J44.1 - Chronic obstructive pulmonary disease with (acute) exacerbation Status: Chronic Assessment and Plan: On ventilator and as noted above. Continue nebulizer treatments and IV steroids. (4) Diabetes: Qualifiers: Diabetes mellitus type: type 2 Diabetes mellitus prison insulin use: with long term care social worker use Diabetes mellitus complication status: with hyperglycemia Qualified Code(s): E11.65 - Type 2 diabetes mellitus with hyperglycemia; Z79.4 - [facility] (current) use of insulin Code(s): E11.9 - Type 2 diabetes mellitus without complications Status: Chronic Assessment and Plan: Hemoglobin A1c 8.0. Glucose reviewed on 04/12/2019. Glucose remains elevated in 300s. Discussed with ethylene plant operator. Increase Lantus to 30 units every 12 hours. Will continue sliding scale insulin. Continue to monitor. Adjust insulin as needed. (5) Hypertension: Qualifiers: Hypertension type: essential hypertension Qualified Code(s): I10 - Essential (primary) hypertension Code(s): I10 - Essential (primary) hypertension Status: Chronic Assessment and Plan: Blood pressure reviewed on 04/12/2019. Still with some elevated readings but improving. Will continue Coreg along with IV Lasix. Adjust treatment as needed. (6) Hypothyroid: Qualifiers: Hypothyroidism type: unspecified Qualified Code(s): E03.9 - Hypothyroidism, unspecified Code(s): E03.9 - Hypothyroidism, unspecified Status: Chronic Assessment and Plan: TSH within normal range. Will continue levothyroxine. (7) Sleep apnea: Qualifiers: Sleep apnea type: obstructive Qualified Code(s): G47.33 - Obstructive sleep apnea (adult) (pediatric) Code(s): G47.30 - Sleep apnea, unspecified Status: Chronic Assessment and Plan: On CPAP at home. Currently intubated as noted above. (8) Morbid (severe) obesity due to excess calories: Code(s): E66.01 - Morbid (severe) obesity due to excess calories Status: Chronic Assessment and Plan: Will reinforce healthy lifestyle once able. (9) DVT prophylaxis: Code(s): Z29.9 - Encounter for prophylactic measures, unspecified Status: Acute Assessment and Plan: SCDs. Time Spent With Patient Time with patient: 15 - 25 minutes Subjective Date/time seen: 04/12/19 08:02 Interval history: Date of Service: 04/12/2019. Admitted with acute respiratory failure, acute on chronic CHF and COPD exacerbation. Required intubation very early in the morning on 04/10/2019. Sedated on ventilator. Nurse reports had increase sedation after attempt to wean. Will open her eyes when name called but will not follow commands. Review of Systems Review of Systems: ROS unobtainable: due to endotracheal tube Exam Const: General: no acute distress HENMT: Other: ET tube in place; OG in place Neck: Neck: supple Resp: Auscultation: no wheez
[2019-04-12] MEDS: PANTOPRAZOLE 40 MG TABLET PO (08:07)
[2019-04-12] MEDS: FERROUS SULFATE 324 MG TABLET PO (08:07)
[2019-04-12] MEDS: ASPIRIN 81 MG ENTERIC TABLET PO (08:07)
[2019-04-12] MEDS: carvediloL 25 MG TABLET PO ×2 (08:07→21:15)
[2019-04-12] MEDS: ASCORBIC ACID 500 MG TABLET PO (08:08)
[2019-04-12] MEDS: FAMOTIDINE 20 MG TABLET PO ×2 (08:08→21:16)
[2019-04-12] MEDS: ENOXAPARIN 40 MG/0.4 ML SYRINGE SUB-Q (08:08)
[2019-04-12] MEDS: FUROSEMIDE INJ 40 MG/4 ML VIAL IV PUSH (08:09)
[2019-04-12] MEDS: TOLNAFTATE 1% POWDER 45 GM BTL 1 APPLIC TOPICAL ×2 (08:09→21:17)
[2019-04-12] MEDS: INSULIN GLARGINE (*BKC) 100 UNITS/ML 30 UNITS SUB-Q ×2 (09:08→21:18)
[2019-04-12] MEDS: PROPOFOL IV EMULSION 100 ML 7.5 MG IV CONT ×2 (09:34→23:33)
--- NOTE | 2019-04-12 11:31 | WPDINTPN ---
Progress Note: A&P Assessment and Plan (1) Acute and chronic respiratory failure with hypercapnia: Code(s): J96.22 - Acute and chronic respiratory failure with hypercapnia Status: Acute Assessment and Plan: Patient presented with shortness of breath, hypercapnic respiratory failure, feel BiPAP. Intubated on 04/10/2019 - likely related to pneumonia, CHF - continue azithromycin and ceftriaxone - ABGs and chest x-ray reviewed, increased peep to 10. Patient on 30% FiO2 - continue bronchodilators - sedated with propofol, fentanyl and Versed infusion, maintain RASS of 0- 2 (2) CHF (congestive heart failure): Qualifiers: Heart failure chronicity: unspecified Heart failure type: unspecified Qualified Code(s): I50.9 - Heart failure, unspecified Code(s): I50.9 - Heart failure, unspecified Status: Chronic Assessment and Plan: history of congestive heart failure, continue Lasix and carvedilol. Blood pressures have been stable - his Lasix to once daily as patient's BUN is rise - echocardiogram done on 02/15/2019 showed mild concentric increased left ventricular wall thickness, LV systolic function is normal, estimated EF is 55-60%. There is mild aortic valve sclerosis, mild mitral valve calcification, RVSP 41 mmHg (3) Diabetes: Qualifiers: Diabetes mellitus type: type 2 Diabetes mellitus detention insulin use: with terminal press operator use Diabetes mellitus complication status: with hyperglycemia Qualified Code(s): E11.65 - Type 2 diabetes mellitus with hyperglycemia; Z79.4 - terminal press operator (current) use of insulin Code(s): E11.9 - Type 2 diabetes mellitus without complications Status: Chronic Assessment and Plan: patient hyperglycemic, likely due to steroids, increase Lantus and will dose q.12 hours and will continue continue Accu-Cheks and sliding scale insulin (4) Morbid (severe) obesity due to excess calories: Code(s): E66.01 - Morbid (severe) obesity due to excess calories Status: Chronic Assessment and Plan: chronic (5) Sleep apnea: Qualifiers: Sleep apnea type: obstructive Qualified Code(s): G47.33 - Obstructive sleep apnea (adult) (pediatric) Code(s): G47.30 - Sleep apnea, unspecified Status: Chronic Assessment and Plan: patient will require CPAP/ BiPAP once extubated (6) Hypothyroid: Qualifiers: Hypothyroidism type: unspecified Qualified Code(s): E03.9 - Hypothyroidism, unspecified Code(s): E03.9 - Hypothyroidism, unspecified Status: Chronic Assessment and Plan: continue levothyroxine (7) COPD (chronic obstructive pulmonary disease): Code(s): J44.9 - Chronic obstructive pulmonary disease, unspecified Status: Chronic Assessment and Plan: continue bronchodilators, steroids, antibiotics and mechanical ventilation for now (8) Hx of Parkinson's disease: Code(s): Z86.69 - Personal history of other diseases of the nervous system and sense organs Status: Chronic Assessment and Plan: continue ropinirole (9) Dietary counseling and surveillance: Code(s): Z71.3 - Dietary counseling and surveillance Status: Acute Assessment and Plan: patient is tolerating tube Additional Plan will discuss with family when available. code status: Full code Critical care time spent: 33 minutes Due to a high probability of clinically significant, life threatening deterioration, the patient required my highest level of preparedness to intervene emergently and I personally spent this critical care time directly and personally managing the patient. This critical care time included obtaining a history; examining the patient; pulse oximetry; ordering and review of studies; arranging urgent treatment with development of a management plan; evaluation of patient's response to treatment; frequent reassessment; and di
[2019-04-12 12:18] LABS: Glucose Point of Care 358 (65-105)
[2019-04-12] MEDS: MIDAZOLAM HCL 50 MG in DEXTROSE 5% 90 ML 6 MG IV CONT (18:09)
[2019-04-12 18:16] LABS: Glucose Point of Care 356 (65-105)
[2019-04-13] VITALS (26 sets, daily range): BP systolic 144–174; BP diastolic 74–106; PULSE 59–89; RESP 13–16; TEMP 36.7–37.4; O2SAT 94–97
[2019-04-13 00:09] LABS: Glucose Point of Care 328 (65-105)
[2019-04-13] MEDS: methylPREDNISolone SOD SUCC 125 MG VIAL 60 MG IV PUSH ×2 (00:25→05:52)
[2019-04-13] MEDS: INSULIN ASPART (*BKC) 100 UNITS/ML SUB-Q ×4 (00:26→19:43)
[2019-04-13] MEDS: IPRATROPIUM BR 0.02% INH SOLN 0.5 MG/2.5 ML VIAL INHALATION ×4 (01:41→20:18)
[2019-04-13] MEDS: ALBUTEROL SULFATE NEB 2.5 MG/0.5 ML INH 5 MG INHALATION ×4 (01:41→20:18)
[2019-04-13 04:24] LABS: Alveolar/Arterial O2 Gradient 87.2 mmHg; Base Excess ABG 14.8 mEq/l (+/-2.0); Carboxyhemoglobin 0.5 % THb (0-2.0); Fractional Inspired Oxygen 30 %; HCO3 ABG 39.3 mEq/l (22.0-26.0); Methemoglobin ABG 0.3 %THb (0-1.5); Oxygen Content ABG 14.1 %vol (16.0-22.0); Oxygen Saturation ABG 95.4 % (95.0-100.0); Oxyhemoglobin 92.5 % THb (90.0-100.0); PCO2 ABG 48.3 mmHg (35.0-45.0); PO2 FiO2 Ratio Arterial Blood 2.33 %; Reduced Hemoglobin 6.7 %THb (0-5.0); Total Hemoglobin 10.8 g/dL (12.0-18.0)
[2019-04-13 04:25] LABS: Hematocrit 31.5 % (37.0-47.0); Hemoglobin 9.8 g/dL (12.0-15.0); Mean Corpuscular HGB Conc 31.1 g/dl (32-36); Mean Corpuscular Hemoglobin 29.8 pg (26-34); Mean Corpuscular Volume 95.7 fl (80-100); Mean Platelet Volume 10.2 fl (7.4-10.4); Platelet Count Result 169 k/mm3 (150-375); Red Blood Count 3.29 M/mm3 (4.2-5.4); Red Cell Distribution Width 15.7 % (11.5-14.5); White Blood Count 8.5 K/mm3 (4.5-10.0)
[2019-04-13 04:27] LABS: Device VENTILATOR; Modified Allen's Test Unable to perform; Site Drawn RIGHT RADIAL; pH ABG 7.528 (7.350-7.450)
[2019-04-13 04:28] LABS: Arterial Blood Gas PEEP 10 cmH2O; Arterial Blood Gas Vent Mode ASV
[2019-04-13 04:49] LABS: Blood Urea Nitrogen 66 mg/dL (7-17); Calcium 8.5 mg/dL (8.4-10.2); Carbon Dioxide > 40 mmol/L (22-30); Chloride 86 mmol/L (98-107); Estimated CRCL calculation 56 ml/min; Estimated Glomerular Filt Rate 42; Glucose 373 mg/dL (65-105); Potassium 3.8 mmol/L (3.4-5.0); Sodium 135 mmol/L (137-145)
[2019-04-13 05:46] LABS: Glucose Point of Care 344 (65-105)
[2019-04-13] MEDS: LEVOTHYROXINE SODIUM 50 MCG TABLET PO (05:52)
[2019-04-13] MEDS: ENOXAPARIN 40 MG/0.4 ML SYRINGE SUB-Q (08:17)
[2019-04-13] MEDS: carvediloL 25 MG TABLET PO ×2 (08:17→21:44)
[2019-04-13] MEDS: FUROSEMIDE INJ 40 MG/4 ML VIAL IV PUSH (08:18)
[2019-04-13] MEDS: FAMOTIDINE 20 MG TABLET PO ×2 (08:18→21:45)
[2019-04-13] MEDS: ASPIRIN 81 MG ENTERIC TABLET PO (08:18)
[2019-04-13] MEDS: ASCORBIC ACID 500 MG TABLET PO (08:18)
[2019-04-13] MEDS: FERROUS SULFATE 324 MG TABLET PO (08:18)
[2019-04-13] MEDS: INSULIN GLARGINE (*BKC) 100 UNITS/ML 45 UNITS SUB-Q ×2 (09:18→21:54)
--- NOTE | 2019-04-13 09:48 | WPDINTPN ---
Progress Note: A&P Assessment and Plan (1) Acute and chronic respiratory failure with hypercapnia: Code(s): J96.22 - Acute and chronic respiratory failure with hypercapnia Status: Acute Assessment and Plan: Patient presented with shortness of breath, hypercapnic respiratory failure, feel BiPAP. Intubated on 04/10/2019 - likely related to pneumonia, CHF - continue azithromycin and ceftriaxone - ABGs and chest x-ray reviewed, peep of 10. Patient on 30% FiO2, ASV mode of ventilation - continue bronchodilators - sedated with propofol, fentanyl and Versed infusion, maintain RASS of 0- 2 (2) CHF (congestive heart failure): Qualifiers: Heart failure chronicity: unspecified Heart failure type: unspecified Qualified Code(s): I50.9 - Heart failure, unspecified Code(s): I50.9 - Heart failure, unspecified Status: Chronic Assessment and Plan: history of congestive heart failure, continue Lasix and carvedilol. Blood pressures have been stable - changed Lasix to once daily as patient's BUN is rise - echocardiogram done on 02/15/2019 showed mild concentric increased left ventricular wall thickness, LV systolic function is normal, estimated EF is 55-60%. There is mild aortic valve sclerosis, mild mitral valve calcification, RVSP 41 mmHg (3) Diabetes: Qualifiers: Diabetes mellitus type: type 2 Diabetes mellitus halfway insulin use: with halfway use Diabetes mellitus complication status: with hyperglycemia Qualified Code(s): E11.65 - Type 2 diabetes mellitus with hyperglycemia; Z79.4 - senior care (current) use of insulin Code(s): E11.9 - Type 2 diabetes mellitus without complications Status: Chronic Assessment and Plan: patient hyperglycemic, likely due to steroids, increase Lantus and dose q.12 hours and will continue continue Accu-Cheks and sliding scale insulin (4) Morbid (severe) obesity due to excess calories: Code(s): E66.01 - Morbid (severe) obesity due to excess calories Status: Chronic Assessment and Plan: chronic (5) Sleep apnea: Qualifiers: Sleep apnea type: obstructive Qualified Code(s): G47.33 - Obstructive sleep apnea (adult) (pediatric) Code(s): G47.30 - Sleep apnea, unspecified Status: Chronic Assessment and Plan: patient will require CPAP/ BiPAP once extubated (6) Hypothyroid: Qualifiers: Hypothyroidism type: unspecified Qualified Code(s): E03.9 - Hypothyroidism, unspecified Code(s): E03.9 - Hypothyroidism, unspecified Status: Chronic Assessment and Plan: continue levothyroxine (7) COPD (chronic obstructive pulmonary disease): Code(s): J44.9 - Chronic obstructive pulmonary disease, unspecified Status: Chronic Assessment and Plan: continue bronchodilators, steroids, antibiotics and mechanical ventilation for now (8) Hx of Parkinson's disease: Code(s): Z86.69 - Personal history of other diseases of the nervous system and sense organs Status: Chronic Assessment and Plan: continue ropinirole (9) Dietary counseling and surveillance: Code(s): Z71.3 - Dietary counseling and surveillance Status: Acute Assessment and Plan: patient is tolerating tube Additional Plan will discuss with family when available. code status: Full code Critical care time spent: 32 minutes Due to a high probability of clinically significant, life threatening deterioration, the patient required my highest level of preparedness to intervene emergently and I personally spent this critical care time directly and personally managing the patient. This critical care time included obtaining a history; examining the patient; pulse oximetry; ordering and review of studies; arranging urgent treatment with development of a management plan; evaluation of patient's response to treatment; frequent reass
--- NOTE | 2019-04-13 10:56 | PCDIET ---
Nutrition Follow-Up Complete: Nutrition Diagnosis: Inadequate oral intake related to oral intubation as evidenced by need for tube feedings. Nutrition Goal: Patient to meet estimated nutritional needs. Goal met. Patient tolerating Glucerna 1.2 @ goal rate of 50mL/hr with 0-20mL residuals. Last recorded weight is 135.5 kg which is increased. Bowel Motility: BM x 1 on 04/12/19. Labs Reviewed: Glu (344), BUN (66), Cr (1.3), Na (135) Meds Noted: Vitamin D, Dulcolax, Tums, Rocephin, Pepcid, Fentanyl, Fentanyl, Ferrous Sulfate, Lasix, Novolog, Lantus, Solu Medrol, Versed, Protonix, Propofol at 4.065mL/hr which provides 107kcal per 24 hours. Additional Notes: Abdominal folds macerated, per nursing. Recommend continuing tube feedings for time being and adding volume based feeding protocol. Nutrition Monitoring and Evaluation: Follow up every Friday/Friday. Follow daily in ICU rounds.
[2019-04-13] MEDS: PROPOFOL IV EMULSION 100 ML 7.5 MG IV CONT (11:01)
[2019-04-13] MEDS: MIDAZOLAM HCL 50 MG in DEXTROSE 5% 90 ML IV CONT (13:49)
--- NOTE | 2019-04-13 14:07 | PM.IMPN ---
Progress Note: A&P Assessment and Plan (1) Acute hypercapnic respiratory failure: Code(s): J96.02 - Acute respiratory failure with hypercapnia Status: Acute Assessment and Plan: Remains sedated on ventilator but will open eyes. Ventilator management per bobbin coil winder. Continue IV antibiotics. Cr up to 1.3. BUN 66 but some of this related to the steroids. Continue IV Lasix but monitor renal function closely. Continue IV steroids. Continue nebulizer treatments. (2) Diastolic dysfunction with acute on chronic heart failure: Code(s): I50.33 - Acute on chronic diastolic (congestive) heart failure Status: Chronic Assessment and Plan: Echo in Nov showing EF 55% and nml diastolic dysfunction. Chest x-ray reviewed today and showing persistent airspace opacities. Continue IV Lasix. Continue Coreg. Continue to monitor. (3) COPD exacerbation: Code(s): J44.1 - Chronic obstructive pulmonary disease with (acute) exacerbation Status: Chronic Assessment and Plan: On ventilator and as noted above. Continue nebulizer treatments and IV steroids. (4) Diabetes: Qualifiers: Diabetes mellitus complication status: with hyperglycemia Diabetes mellitus tank terminal gauger insulin use: with group home use Diabetes mellitus type: type 2 Qualified Code(s): E11.65 - Type 2 diabetes mellitus with hyperglycemia; Z79.4 - [employer]P (current) use of insulin Code(s): E11.9 - Type 2 diabetes mellitus without complications Status: Chronic Assessment and Plan: A1c 8.0. Glucose reviewed on 04/13/2019. Glucose remains elevated in 300s related to the steroids. Lantus was advanced to 45 units every 12 hours. Will continue sliding scale insulin. Continue to monitor. Adjust insulin as needed. (5) Hypertension: Qualifiers: Hypertension type: essential hypertension Qualified Code(s): I10 - Essential (primary) hypertension Code(s): I10 - Essential (primary) hypertension Status: Chronic Assessment and Plan: Blood pressure reviewed on 04/13/2019. BP consistently elevated. Currently on Coreg along with IV Lasix. BP elevation could be related to steroids. Consider adding lisinopril. Adjust treatment as needed. (6) Hypothyroid: Qualifiers: Hypothyroidism type: unspecified Qualified Code(s): E03.9 - Hypothyroidism, unspecified Code(s): E03.9 - Hypothyroidism, unspecified Status: Chronic Assessment and Plan: TSH within normal range. Will continue levothyroxine. (7) Sleep apnea: Qualifiers: Sleep apnea type: obstructive Qualified Code(s): G47.33 - Obstructive sleep apnea (adult) (pediatric) Code(s): G47.30 - Sleep apnea, unspecified Status: Chronic Assessment and Plan: On CPAP at home. Currently intubated as noted above. (8) Morbid (severe) obesity due to excess calories: Code(s): E66.01 - Morbid (severe) obesity due to excess calories Status: Chronic Assessment and Plan: Will reinforce healthy lifestyle once able. (9) DVT prophylaxis: Code(s): Z29.9 - Encounter for prophylactic measures, unspecified Status: Acute Assessment and Plan: SCDs. Subjective Date/time seen: 04/13/19 14:07 Interval history: 59yo female here for acute on chronic hypercapnic respiratory failure, CHF, pneumonia. Assuming care. Chart reviewed. Patient currently intubated and sedated. No family in the room. Currently on 30% FiO2, PEEP 10. Currently sedated with propofol, fentanyl and Versed. Patient opens her eyes to voice but does not follow commands. Review of Systems Review of Systems: ROS unobtainable: due to endotracheal tube and unobtainable due to mental condition Exam Narrative: Exam Narrative: Gen -intubated and sedated. HEENT - NC/AT, NG tube and OG tube secured. Chest -lungs are clear anteriorly and in the flanks
[2019-04-13] MEDS: TOLNAFTATE 1% POWDER 45 GM BTL 1 APPLIC TOPICAL ×2 (14:37→21:43)
[2019-04-13] MEDS: methylPREDNISolone SOD SUCC 40 MG VIAL IV PUSH ×2 (14:40→21:43)
[2019-04-13 14:44] LABS: Glucose Point of Care 330 (65-105)
[2019-04-13 19:15] LABS: Glucose Point of Care 330 (65-105)
[2019-04-13] MEDS: PROPOFOL IV EMULSION 100 ML 20.3 MG IV CONT (19:42)
[2019-04-13 21:58] LABS: Glucose Point of Care 352 (65-105)
[2019-04-14] VITALS (48 sets, daily range): BP systolic 131–178; BP diastolic 71–122; PULSE 46–89; RESP 9–22; TEMP 36.2–36.9; O2SAT 96–100
[2019-04-14 00:33] LABS: Glucose Point of Care 342 (65-105)
[2019-04-14] MEDS: INSULIN ASPART (*BKC) 100 UNITS/ML SUB-Q ×5 (00:35→19:39)
[2019-04-14] MEDS: PROPOFOL IV EMULSION 100 ML 16.3 MG IV CONT ×2 (01:04→15:30)
[2019-04-14] MEDS: IPRATROPIUM BR 0.02% INH SOLN 0.5 MG/2.5 ML VIAL INHALATION ×4 (02:20→20:24)
[2019-04-14] MEDS: ALBUTEROL SULFATE NEB 2.5 MG/0.5 ML INH 5 MG INHALATION ×4 (02:20→20:24)
[2019-04-14 04:31] LABS: Hematocrit 36.5 % (37.0-47.0); Hemoglobin 11.3 g/dL (12.0-15.0); Mean Corpuscular Hemoglobin 29.5 pg (26-34); Mean Corpuscular Volume 95.3 fl (80-100); Mean Platelet Volume 10.4 fl (7.4-10.4); Platelet Count Result 172 k/mm3 (150-375); Red Blood Count 3.83 M/mm3 (4.2-5.4); Red Cell Distribution Width 15.9 % (11.5-14.5); White Blood Count 8.1 K/mm3 (4.5-10.0)
[2019-04-14 04:50] LABS: Lactic Acid 2.1 mmol/L (0.7-2.1)
[2019-04-14] MEDS: hydrALAZINE HCL 20 MG/ML VIAL 10 MG IV PUSH ×2 (05:19→13:41)
[2019-04-14] MEDS: methylPREDNISolone SOD SUCC 40 MG VIAL IV PUSH ×3 (05:21→22:01)
[2019-04-14] MEDS: LEVOTHYROXINE SODIUM 50 MCG TABLET PO (05:21)
[2019-04-14 05:26] LABS: Alveolar/Arterial O2 Gradient 84.2 mmHg; Base Excess ABG 15.5 mEq/l (+/-2.0); Carboxyhemoglobin 0.2 % THb (0-2.0); Fractional Inspired Oxygen 30 %; HCO3 ABG 40.1 mEq/l (22.0-26.0); Methemoglobin ABG 0.3 %THb (0-1.5); Oxygen Content ABG 14.8 %vol (16.0-22.0); Oxygen Saturation ABG 95.9 % (95.0-100.0); Oxyhemoglobin 93.5 % THb (90.0-100.0); PCO2 ABG 48.7 mmHg (35.0-45.0); PO2 ABG 72.5 mmHg (80.0-100.0); PO2 FiO2 Ratio Arterial Blood 2.42 %; Total Hemoglobin 11.2 g/dL (12.0-18.0)
[2019-04-14 05:26] LABS: Blood Urea Nitrogen 75 mg/dL (7-17); Calcium 8.9 mg/dL (8.4-10.2); Carbon Dioxide > 40 mmol/L (22-30); Chloride 86 mmol/L (98-107); Estimated CRCL calculation 61 ml/min; Estimated Glomerular Filt Rate 46; Glucose 312 mg/dL (65-105); Magnesium 2.2 mg/dL (1.6-2.3); Phosphorus 4.5 mg/dL (2.5-4.5); Potassium 3.6 mmol/L (3.4-5.0); Sodium 136 mmol/L (137-145)
[2019-04-14 05:27] LABS: Device VENTILATOR; Modified Allen's Test Pass; Site Drawn RIGHT RADIAL; pH ABG 7.533 (7.350-7.450)
[2019-04-14 05:28] LABS: Arterial Blood Gas PEEP 10 cmH2O
[2019-04-14 05:29] LABS: Arterial Blood Gas Vent Mode ASV
[2019-04-14] MEDS: PROPOFOL IV EMULSION 100 ML 24.4 MG IV CONT (06:17)
--- NOTE | 2019-04-14 09:45 | PM.IMPN ---
Progress Note: A&P Assessment and Plan (1) Acute hypercapnic respiratory failure: Code(s): J96.02 - Acute respiratory failure with hypercapnia Status: Acute Assessment and Plan: Remains sedated on ventilator but will open eyes. Sedation has been changed over to propofol. Ventilator management per blanket inspector. Continue IV antibiotics. Cr atable at 1.2. BUN 75 today but some of this related to the steroids. CXR reviewed and still showing pulm edema. Continue IV Lasix but monitor renal function closely. Weaning IV steroids . Continue nebulizer treatments. Discussed with blanket inspector. (2) Diastolic dysfunction with acute on chronic heart failure: Code(s): I50.33 - Acute on chronic diastolic (congestive) heart failure Status: Chronic Assessment and Plan: Echo in Feb showing EF 55% and nml diastolic dysfunction. Chest x-ray reviewed today and showing persistent pulm edema. Continue IV Lasix. Continue Coreg. Continue to monitor. (3) COPD exacerbation: Code(s): J44.1 - Chronic obstructive pulmonary disease with (acute) exacerbation Status: Chronic Assessment and Plan: On ventilator and as noted above. Continue nebulizer treatments and IV steroids. (4) Diabetes: Qualifiers: Diabetes mellitus type: type 2 Diabetes mellitus extermination supervisor insulin use: with extermination supervisor use Diabetes mellitus complication status: with hyperglycemia Qualified Code(s): E11.65 - Type 2 diabetes mellitus with hyperglycemia; Z79.4 - adjunct faculty for medical terminology (current) use of insulin Code(s): E11.9 - Type 2 diabetes mellitus without complications Status: Chronic Assessment and Plan: A1c 8.0. Glucose reviewed on 04/14/2019. Glucose remains elevated in 300s at times but improved. Lantus was advanced to 45 units every 12 hours yesterday. Will continue sliding scale insulin at the higher range. Continue to monitor. Adjust insulin as needed. Steroids being weaned (5) Hypertension: Qualifiers: Hypertension type: essential hypertension Qualified Code(s): I10 - Essential (primary) hypertension Code(s): I10 - Essential (primary) hypertension Status: Chronic Assessment and Plan: Blood pressure reviewed on 04/14/2019. BP consistently elevated but better this morning possibly related to the propofol. Did receive hydralazine x1 overnight. Currently on Coreg along with IV Lasix. BP elevation could be related to steroids. Continue to monitor. Adjust treatment as needed. (6) Hypothyroid: Qualifiers: Hypothyroidism type: unspecified Qualified Code(s): E03.9 - Hypothyroidism, unspecified Code(s): E03.9 - Hypothyroidism, unspecified Status: Chronic Assessment and Plan: TSH within normal range. Will continue levothyroxine. (7) Sleep apnea: Qualifiers: Sleep apnea type: obstructive Qualified Code(s): G47.33 - Obstructive sleep apnea (adult) (pediatric) Code(s): G47.30 - Sleep apnea, unspecified Status: Chronic Assessment and Plan: On CPAP at home. Currently intubated as noted above. (8) Morbid (severe) obesity due to excess calories: Code(s): E66.01 - Morbid (severe) obesity due to excess calories Status: Chronic Assessment and Plan: BMI 55. Will reinforce healthy lifestyle once able. (9) DVT prophylaxis: Code(s): Z29.9 - Encounter for prophylactic measures, unspecified Status: Acute Assessment and Plan: SCDs. Subjective Date/time seen: 04/14/19 09:45 Interval history: 59yo female here for acute on chronic hypercapnic respiratory failure, CHF, and pneumonia. Patient currently intubated and sedated. No family in the room. Currently on 30% FiO2 and PEEP 10. Currently sedated with propofol only. Fentanyl and Versed stopped overnight. Patient opens her eyes to voice but does not follow commands. Review of System
[2019-04-14] MEDS: PROPOFOL IV EMULSION 100 ML 28.5 MG IV CONT (09:54)
[2019-04-14] MEDS: TOLNAFTATE 1% POWDER 45 GM BTL 1 APPLIC TOPICAL ×2 (09:57→20:54)
[2019-04-14] MEDS: FUROSEMIDE INJ 40 MG/4 ML VIAL IV PUSH (09:57)
[2019-04-14] MEDS: FERROUS SULFATE 324 MG TABLET PO (09:58)
[2019-04-14] MEDS: carvediloL 25 MG TABLET PO ×2 (09:58→20:45)
[2019-04-14] MEDS: ASCORBIC ACID 500 MG TABLET PO (09:58)
[2019-04-14] MEDS: FAMOTIDINE 20 MG TABLET PO ×2 (09:58→20:44)
[2019-04-14] MEDS: ASPIRIN 81 MG ENTERIC TABLET PO (09:58)
[2019-04-14] MEDS: ENOXAPARIN 40 MG/0.4 ML SYRINGE SUB-Q (09:59)
[2019-04-14 10:01] LABS: Glucose Point of Care 256 (65-105)
[2019-04-14] MEDS: INSULIN GLARGINE (*BKC) 100 UNITS/ML 60 UNITS SUB-Q ×2 (10:10→19:38)
[2019-04-14] MEDS: SCOPOLAMINE 1.5 MG PATCH TRANSDERM (12:51)
--- NOTE | 2019-04-14 12:54 | WPDINTPN ---
Progress Note: A&P Assessment and Plan (1) Acute and chronic respiratory failure with hypercapnia: Code(s): J96.22 - Acute and chronic respiratory failure with hypercapnia Status: Acute Assessment and Plan: Patient presented with shortness of breath, hypercapnic respiratory failure, feel BiPAP. Intubated on 04/10/2019 - likely related to pneumonia, CHF - continue azithromycin and ceftriaxone - ABGs and chest x-ray reviewed, peep of 10. Patient on 30% FiO2, ASV mode of ventilation - continue bronchodilators - Will start Precedex infusion, wean propofol infusion. Will place patient on SBT 01/12 (2) CHF (congestive heart failure): Qualifiers: Heart failure chronicity: unspecified Heart failure type: unspecified Qualified Code(s): I50.9 - Heart failure, unspecified Code(s): I50.9 - Heart failure, unspecified Status: Chronic Assessment and Plan: history of congestive heart failure, continue Lasix and carvedilol. Blood pressures have been stable - changed Lasix to once daily as patient's BUN is rising - patient is a negative fluid balance, will give dose of Lasix today. Continue to monitor BUN and creatinine and - echocardiogram done on 02/15/2019 showed mild concentric increased left ventricular wall thickness, LV systolic function is normal, estimated EF is 55-60%. There is mild aortic valve sclerosis, mild mitral valve calcification, RVSP 41 mmHg (3) Diabetes: Qualifiers: Diabetes mellitus type: type 2 Diabetes mellitus middle or intermediate school principal insulin use: with longterm use Diabetes mellitus complication status: with hyperglycemia Qualified Code(s): E11.65 - Type 2 diabetes mellitus with hyperglycemia; Z79.4 - terminal gauger (current) use of insulin Code(s): E11.9 - Type 2 diabetes mellitus without complications Status: Chronic Assessment and Plan: patient hyperglycemic, likely due to steroids, increase Lantus and dose q.12 hours and will continue continue Accu-Cheks and sliding scale insulin (4) Morbid (severe) obesity due to excess calories: Code(s): E66.01 - Morbid (severe) obesity due to excess calories Status: Chronic Assessment and Plan: chronic (5) Sleep apnea: Qualifiers: Sleep apnea type: obstructive Qualified Code(s): G47.33 - Obstructive sleep apnea (adult) (pediatric) Code(s): G47.30 - Sleep apnea, unspecified Status: Chronic Assessment and Plan: patient will require CPAP/ BiPAP once extubated (6) Hypothyroid: Qualifiers: Hypothyroidism type: unspecified Qualified Code(s): E03.9 - Hypothyroidism, unspecified Code(s): E03.9 - Hypothyroidism, unspecified Status: Chronic Assessment and Plan: continue levothyroxine (7) COPD (chronic obstructive pulmonary disease): Code(s): J44.9 - Chronic obstructive pulmonary disease, unspecified Status: Chronic Assessment and Plan: continue bronchodilators, steroids, antibiotics and mechanical ventilation for now (8) Hx of Parkinson's disease: Code(s): Z86.69 - Personal history of other diseases of the nervous system and sense organs Status: Chronic Assessment and Plan: continue ropinirole (9) Dietary counseling and surveillance: Code(s): Z71.3 - Dietary counseling and surveillance Status: Acute Assessment and Plan: patient is tolerating tube Additional Plan will discuss with family when available. code status: Full code Critical care time spent: 33 minutes Due to a high probability of clinically significant, life threatening deterioration, the patient required my highest level of preparedness to intervene emergently and I personally spent this critical care time directly and personally managing the patient. This critical care time included obtaining a history; examining the patient; pulse oximetry; ordering and review of studi
[2019-04-14 13:07] LABS: Glucose Point of Care 212 (65-105)
--- NOTE | 2019-04-14 14:30 | PCDIET ---
ICU Rounding Note: Patient tolerating Glucerna 1.2 @ 50mL/hr with 0-10mL residuals documented. MD ordered to hold tube feedings for SBT. Last recorded weight is 136.1kg which is increased. I/O negative. Bowel Motility: BM x 1 on 04/11/19. Labs Reviewed: Glu (312), BUN (75), Cr (1.2), Na (136) Meds Noted: Vitamin C, Rocephin, Fentanyl, Ferrous Sulfate, Lasix, Novolog, Lantus, Versed, Solu Medrol, Protonix, Propofol at 24.4mL/hr (644kcal over 24 hour period) Additional Notes: MD ordered to taper Propofol for SBT. Following daily in ICU rounds. Assessing/reassessing every Friday/Friday.
[2019-04-14 18:54] LABS: Glucose Point of Care 202 (65-105)
[2019-04-14 23:56] LABS: Glucose Point of Care 134 (65-105)
[2019-04-15] VITALS (55 sets, daily range): BP systolic 106–174; BP diastolic 70–98; PULSE 45–75; RESP 11–24; TEMP 36.6–36.9; O2SAT 94–100
[2019-04-15] MEDS: IPRATROPIUM BR 0.02% INH SOLN 0.5 MG/2.5 ML VIAL INHALATION ×4 (02:31→20:00)
[2019-04-15] MEDS: ALBUTEROL SULFATE NEB 2.5 MG/0.5 ML INH 5 MG INHALATION ×4 (02:31→20:00)
[2019-04-15 05:07] LABS: Alveolar/Arterial O2 Gradient 53.4 mmHg; Base Excess ABG 13.2 mEq/l (+/-2.0); Carboxyhemoglobin 0.6 % THb (0-2.0); Fractional Inspired Oxygen 30 %; Oxygen Content ABG 17.1 %vol (16.0-22.0); Oxygen Saturation ABG 98.1 % (95.0-100.0); PCO2 ABG 48.8 mmHg (35.0-45.0); PO2 ABG 103.2 mmHg (80.0-100.0); PO2 FiO2 Ratio Arterial Blood 3.44 %; Reduced Hemoglobin 3.4 %THb (0-5.0); Site Drawn LEFT RADIAL; Total Hemoglobin 12.6 g/dL (12.0-18.0); pH ABG 7.509 (7.350-7.450)
[2019-04-15 05:08] LABS: Arterial Blood Gas Vent Mode ASV; Device VENTILATOR; Modified Allen's Test Pass
[2019-04-15 05:09] LABS: Arterial Blood Gas PEEP 8 cmH2O
[2019-04-15 05:29] LABS: Glucose Point of Care 84 (65-105)
[2019-04-15] MEDS: LEVOTHYROXINE SODIUM 50 MCG TABLET PO (05:31)
[2019-04-15 06:03] LABS: Hematocrit 36.4 % (37.0-47.0); Hemoglobin 11.6 g/dL (12.0-15.0); Mean Corpuscular HGB Conc 31.9 g/dl (32-36); Mean Corpuscular Hemoglobin 29.5 pg (26-34); Mean Corpuscular Volume 92.6 fl (80-100); Mean Platelet Volume 9.7 fl (7.4-10.4); Platelet Count Result 181 k/mm3 (150-375); Red Blood Count 3.93 M/mm3 (4.2-5.4); Red Cell Distribution Width 15.6 % (11.5-14.5); White Blood Count 11.2 K/mm3 (4.5-10.0)
[2019-04-15 06:15] LABS: Lactic Acid 1.4 mmol/L (0.7-2.1)
[2019-04-15 06:17] LABS: Blood Urea Nitrogen 75 mg/dL (7-17); Calcium 9.1 mg/dL (8.4-10.2); Carbon Dioxide 39 mmol/L (22-30); Chloride 88 mmol/L (98-107); Estimated CRCL calculation 72 ml/min; Estimated Glomerular Filt Rate 57; Glucose 84 mg/dL (65-105); Magnesium 2.2 mg/dL (1.6-2.3); Potassium 3.6 mmol/L (3.4-5.0); Sodium 135 mmol/L (137-145)
--- NOTE | 2019-04-15 08:01 | WPDINTPN ---
Progress Note: A&P Assessment and Plan (1) Acute and chronic respiratory failure with hypercapnia: Code(s): J96.22 - Acute and chronic respiratory failure with hypercapnia Status: Acute Assessment and Plan: Patient presented with shortness of breath, hypercapnic respiratory failure, feel BiPAP. Intubated on 04/10/2019 - likely related to pneumonia, CHF - continue azithromycin and ceftriaxone ( for a total of 7 days) - ABGs and chest x-ray reviewed, peep of 8. Patient on 30% FiO2, tolerating ASV mode of ventilation - continue bronchodilators - patient on Precedex infusion, will place on SBT - also started low-dose Xanax that patient takes at home (2) CHF (congestive heart failure): Qualifiers: Heart failure chronicity: unspecified Heart failure type: unspecified Qualified Code(s): I50.9 - Heart failure, unspecified Code(s): I50.9 - Heart failure, unspecified Status: Chronic Assessment and Plan: history of congestive heart failure, continue Lasix and carvedilol. Blood pressures have been stable - HOLD LASIX TODAY S PATIENT IS -5 L FLUID BALANCE SINCE ADMISSION AND BUN A 75 THIS MORNING - echocardiogram done on 02/15/2019 showed mild concentric increased left ventricular wall thickness, LV systolic function is normal, estimated EF is 55-60%. There is mild aortic valve sclerosis, mild mitral valve calcification, RVSP 41 mmHg (3) Diabetes: Qualifiers: Diabetes mellitus complication status: with hyperglycemia Diabetes mellitus skilled nursing insulin use: with skilled nursing use Diabetes mellitus type: type 2 Qualified Code(s): E11.65 - Type 2 diabetes mellitus with hyperglycemia; Z79.4 - [employer] (current) use of insulin Code(s): E11.9 - Type 2 diabetes mellitus without complications Status: Chronic Assessment and Plan: BLOOD SUGARS HAVE BEEN LOW, WILL DECREASE LANTUS. Continue Accu-Cheks and sliding scale insulin (4) Morbid (severe) obesity due to excess calories: Code(s): E66.01 - Morbid (severe) obesity due to excess calories Status: Chronic Assessment and Plan: chronic (5) Sleep apnea: Qualifiers: Sleep apnea type: obstructive Qualified Code(s): G47.33 - Obstructive sleep apnea (adult) (pediatric) Code(s): G47.30 - Sleep apnea, unspecified Status: Chronic Assessment and Plan: patient will require CPAP/ BiPAP once extubated (6) Hypothyroid: Qualifiers: Hypothyroidism type: unspecified Qualified Code(s): E03.9 - Hypothyroidism, unspecified Code(s): E03.9 - Hypothyroidism, unspecified Status: Chronic Assessment and Plan: continue levothyroxine (7) COPD (chronic obstructive pulmonary disease): Code(s): J44.9 - Chronic obstructive pulmonary disease, unspecified Status: Chronic Assessment and Plan: continue bronchodilators, steroids, antibiotics and mechanical ventilation for now (8) Hx of Parkinson's disease: Code(s): Z86.69 - Personal history of other diseases of the nervous system and sense organs Status: Chronic Assessment and Plan: continue ropinirole (9) Dietary counseling and surveillance: Code(s): Z71.3 - Dietary counseling and surveillance Status: Acute Assessment and Plan: patient is tolerating tube Additional Plan will discuss with family when available. code status: Full code Critical care time spent: 32 minutes Due to a high probability of clinically significant, life threatening deterioration, the patient required my highest level of preparedness to intervene emergently and I personally spent this critical care time directly and personally managing the patient. This critical care time included obtaining a history; examining the patient; pulse oximetry; ordering and review of studies; arranging urgent treatment with development of a management plan; eval
[2019-04-15] MEDS: POTASSIUM CHLORIDE 20 MEQ PACKET (FOR LIQUID) 40 MEQ PO (08:36)
[2019-04-15] MEDS: ASPIRIN 81 MG ENTERIC TABLET PO (08:38)
[2019-04-15] MEDS: FAMOTIDINE 20 MG TABLET PO (08:38)
[2019-04-15] MEDS: carvediloL 25 MG TABLET PO (08:38)
[2019-04-15] MEDS: FERROUS SULFATE 324 MG TABLET PO (08:38)
[2019-04-15] MEDS: ENOXAPARIN 40 MG/0.4 ML SYRINGE SUB-Q (08:39)
[2019-04-15] MEDS: PANTOPRAZOLE 40 MG TABLET PO (08:39)
[2019-04-15] MEDS: ASCORBIC ACID 500 MG TABLET PO (08:39)
[2019-04-15] MEDS: TOLNAFTATE 1% POWDER 45 GM BTL 1 APPLIC TOPICAL ×2 (08:44→21:28)
[2019-04-15] MEDS: methylPREDNISolone SOD SUCC 40 MG VIAL IV PUSH ×2 (08:48→21:27)
[2019-04-15] MEDS: ALPRAZOLAM 0.25 MG TABLET FEED TUBE (08:57)
[2019-04-15] MEDS: INSULIN GLARGINE (*BKC) 100 UNITS/ML 30 UNITS SUB-Q (08:58)
--- NOTE | 2019-04-15 11:17 | PCDIET ---
ICU Rounding Note: Tube feedings currently on hold for possible extubation. Previously tolerating Glucerna 1.2 @ 50mL/hr goal rate. Last recorded weight is 128.9kg which is down from last review. I/O negative. Bowel Motility: Last documented bowel movement on 04/10/19. Labs Reviewed: BUN (75), Na (135), PO4 (5.0) Meds Noted: Albuterol, Vitamin C, Dulcolax, Ferrous Sulfate, Lasix, Rocephin, Precedex, Novolog, Lantus, Solu Medrol, Protonix Additional Notes: Abdominal folds macerated with no documented pressure ulcers. Recommend resuming tube feedings if unable to extubate today. Following daily in ICU rounds. Assessing/reassessing every Friday/Friday.
[2019-04-15 12:22] LABS: Glucose Point of Care 62 (65-105)
[2019-04-15] MEDS: DEXTROSE 50% 25 GM/50 ML SYRINGE IV PUSH ×2 (12:31→17:52)
[2019-04-15 13:03] LABS: Glucose Point of Care 120 (65-105)
[2019-04-15 13:13] LABS: Alveolar/Arterial O2 Gradient 74.3 mmHg; Base Excess ABG 7.9 mEq/l (+/-2.0); Fractional Inspired Oxygen 30 %; HCO3 ABG 31.9 mEq/l (22.0-26.0); Oxygen Content ABG 16.5 %vol (16.0-22.0); Oxygen Saturation ABG 97.4 % (95.0-100.0); Oxyhemoglobin 95.1 % THb (90.0-100.0); PCO2 ABG 42.2 mmHg (35.0-45.0); Total Hemoglobin 12.3 g/dL (12.0-18.0); pH ABG 7.496 (7.350-7.450)
[2019-04-15 13:14] LABS: Modified Allen's Test Pass; Site Drawn RIGHT RADIAL
[2019-04-15 13:15] LABS: Arterial Blood Gas Minute Volume 0 LPM; Arterial Blood Gas PEEP 5 cmH2O; Arterial Blood Gas Pressure Support 8 cmH2O; Arterial Blood Gas Tidal Volume 0 ml; Arterial Blood Gas Vent Mode SPONTANEOUS; Arterial Blood Gas Ventilator rate 0 /MIN; Device VENTILATOR; Peak Inspiratory Pressure 0 cmH2O
[2019-04-15] MEDS: DEXTROSE 5%/0.9% SOD CHL 1,000 ML 70 ML IV CONT (17:40)
--- NOTE | 2019-04-15 17:54 | PM.IMPN ---
Progress Note: A&P Assessment and Plan (1) Acute hypercapnic respiratory failure: Code(s): J96.02 - Acute respiratory failure with hypercapnia Status: Acute Assessment and Plan: Patient intubated on 04/09/19 and and able to be extubated today. Currently on 2L and appears comfortable. Continue IV antibiotics. CXR reviewed and showing similar findings. IV Lasix held but renal function stable. Weaning IV steroids. Continue nebulizer treatments. (2) Diastolic dysfunction with acute on chronic heart failure: Code(s): I50.33 - Acute on chronic diastolic (congestive) heart failure Status: Chronic Assessment and Plan: Echo in February showing EF 55% and nml diastolic dysfunction. Chest x-ray reviewed today and showing persistent findings - may be pulm edema or vascular crowding. IV Lasix on hold. Continue Coreg. Continue to monitor. Resume oral Lasix when taking oral intake. (3) COPD exacerbation: Code(s): J44.1 - Chronic obstructive pulmonary disease with (acute) exacerbation Status: Chronic Assessment and Plan: As above. Will have speech therapy evaluate the patient to see if she can swallow safely. Continue nebulizer treatments and IV steroids. (4) Diabetes: Qualifiers: Diabetes mellitus type: type 2 Diabetes mellitus prison insulin use: with prison use Diabetes mellitus complication status: with hyperglycemia Qualified Code(s): E11.65 - Type 2 diabetes mellitus with hyperglycemia; Z79.4 - terminal computer operator (current) use of insulin Code(s): E11.9 - Type 2 diabetes mellitus without complications Status: Chronic Assessment and Plan: A1c 8.0. Glucose reviewed on 04/15/2019. Glucose has dropped to 62 today. She is off tube feedings. Will start IV fluids with dextrose. Hold Lantus. Continue sliding scale insulin. Continue to monitor. (5) Hypertension: Qualifiers: Hypertension type: essential hypertension Qualified Code(s): I10 - Essential (primary) hypertension Code(s): I10 - Essential (primary) hypertension Status: Chronic Assessment and Plan: Blood pressure reviewed on 04/15/2019. BP much better controlled. Currently on Coreg. BP elevation could be related to steroids with improvement with weaning steroids. Continue to monitor. Adjust treatment as needed. (6) Hypothyroid: Qualifiers: Hypothyroidism type: unspecified Qualified Code(s): E03.9 - Hypothyroidism, unspecified Code(s): E03.9 - Hypothyroidism, unspecified Status: Chronic Assessment and Plan: TSH within normal range. Will continue levothyroxine. (7) Sleep apnea: Qualifiers: Sleep apnea type: obstructive Qualified Code(s): G47.33 - Obstructive sleep apnea (adult) (pediatric) Code(s): G47.30 - Sleep apnea, unspecified Status: Chronic Assessment and Plan: On CPAP at home. Resume PAP therapy at night.. (8) Morbid (severe) obesity due to excess calories: Code(s): E66.01 - Morbid (severe) obesity due to excess calories Status: Chronic Assessment and Plan: Will reinforce healthy lifestyle when patient more oriented. (9) DVT prophylaxis: Code(s): Z29.9 - Encounter for prophylactic measures, unspecified Status: Acute Assessment and Plan: SCDs. Subjective Date/time seen: 04/15/19 17:54 Interval history: 9yo female here for acute on chronic hypercapnic respiratory failure, CHF, and pneumonia. Patient extubated today successfully. 900cc UOP overnight. Currently on 2L which is her baseline. lasix stopped. RN states patient has been hallucinating. SHe is still on the Precedex at low dose. Glucose dropped to 60's. She is not eating and not on IVF. No family in the room. Patient feels better but perseverates on her desire to return to the NH. She begins to cry. Hx is limited. Exam Narrative:
[2019-04-15 17:55] LABS: Glucose Point of Care 45 (65-105)
[2019-04-15 18:21] LABS: Glucose Point of Care 132 (65-105)
[2019-04-16] VITALS (29 sets, daily range): BP systolic 111–147; BP diastolic 56–94; PULSE 52–93; RESP 11–20; TEMP 36.5–36.9; O2SAT 96–100
[2019-04-16] MEDS: DEXTROSE 50% 25 GM/50 ML SYRINGE IV PUSH (00:01)
[2019-04-16 00:03] LABS: Glucose Point of Care 51 (65-105)
[2019-04-16 00:26] LABS: Glucose Point of Care 138 (65-105)
[2019-04-16] MEDS: IPRATROPIUM BR 0.02% INH SOLN 0.5 MG/2.5 ML VIAL INHALATION ×4 (01:52→20:48)
[2019-04-16] MEDS: ALBUTEROL SULFATE NEB 2.5 MG/0.5 ML INH 5 MG INHALATION ×4 (01:52→20:48)
[2019-04-16 04:48] LABS: Basophils Percent Auto 0.1 % (0.2-1.2); Hematocrit 36.1 % (37.0-47.0); Hemoglobin 11.1 g/dL (12.0-15.0); Immature Granulocyte Absolute 0.13 K/mm3 (0.00-0.031); Immature Granulocyte Percent A 1.6 % (0-0.5); Lymphocytes Absolute Auto 0.92 K/mm3 (0.9-3.2); Lymphocytes Percent Auto 11.1 % (18.3-44.2); Mean Corpuscular HGB Conc 30.7 g/dl (32-36); Mean Corpuscular Hemoglobin 29.8 pg (26-34); Mean Platelet Volume 10.4 fl (7.4-10.4); Monocytes Absolute Auto 0.6 K/mm3 (0.1-0.6); Monocytes Percent Auto 6.6 % (2.6-8.5); Neutrophils Absolute Auto 6.7 K/mm3 (1.3-6.7); Neutrophils Percent Auto 80.6 % (45.5-73.1); Platelet Count Result 163 k/mm3 (150-375); Red Blood Count 3.72 M/mm3 (4.2-5.4); Red Cell Distribution Width 16.1 % (11.5-14.5); White Blood Count 8.3 K/mm3 (4.5-10.0)
[2019-04-16 05:02] LABS: Albumin Level 2.9 g/dL (3.5-5.1); Blood Urea Nitrogen 67 mg/dL (7-17); Calcium 8.5 mg/dL (8.4-10.2); Carbon Dioxide 35 mmol/L (22-30); Chloride 92 mmol/L (98-107); Estimated CRCL calculation 77 ml/min; Estimated Glomerular Filt Rate > 60; Glucose 81 mg/dL (65-105); Magnesium 2.2 mg/dL (1.6-2.3); Phosphorus 5.2 mg/dL (2.5-4.5); Potassium 3.8 mmol/L (3.4-5.0); Sodium 133 mmol/L (137-145)
[2019-04-16 05:25] LABS: Glucose Point of Care 92 (65-105)
[2019-04-16] MEDS: DEXTROSE 5%/0.9% SOD CHL 1,000 ML 70 ML IV CONT (05:29)
[2019-04-16] MEDS: LEVOTHYROXINE SODIUM 50 MCG TABLET PO (08:14)
[2019-04-16] MEDS: FERROUS SULFATE 324 MG TABLET PO (08:16)
[2019-04-16] MEDS: ASPIRIN 81 MG ENTERIC TABLET PO (08:17)
[2019-04-16] MEDS: carvediloL 25 MG TABLET PO ×2 (08:18→21:37)
[2019-04-16] MEDS: ASCORBIC ACID 500 MG TABLET PO (08:19)
[2019-04-16] MEDS: FAMOTIDINE 20 MG TABLET PO ×2 (08:19→21:37)
[2019-04-16] MEDS: ENOXAPARIN 40 MG/0.4 ML SYRINGE SUB-Q (08:20)
[2019-04-16] MEDS: TOLNAFTATE 1% POWDER 45 GM BTL 1 APPLIC TOPICAL ×2 (08:20→21:36)
[2019-04-16] MEDS: methylPREDNISolone SOD SUCC 40 MG VIAL IV PUSH (08:20)
--- NOTE | 2019-04-16 09:25 | WPDINTPN ---
Progress Note: A&P Assessment and Plan (1) Acute and chronic respiratory failure with hypercapnia: Code(s): J96.22 - Acute and chronic respiratory failure with hypercapnia Status: Acute Assessment and Plan: PATIENT SUCCESSFULLY EXTUBATED ON 04/15/2019, - Patient presented to the hospital with shortness of breath, hypercapnic respiratory failure, feel BiPAP. Intubated on 04/10/2019 - likely related to pneumonia, CHF - continue azithromycin and ceftriaxone ( for a total of 7 days - continue bronchodilators (2) CHF (congestive heart failure): Qualifiers: Heart failure chronicity: unspecified Heart failure type: unspecified Qualified Code(s): I50.9 - Heart failure, unspecified Code(s): I50.9 - Heart failure, unspecified Status: Chronic Assessment and Plan: history of congestive heart failure, continue Lasix and carvedilol. Blood pressures have been stable - will restart p.o. Lasix which she takes at home - echocardiogram done on 02/15/2019 showed mild concentric increased left ventricular wall thickness, LV systolic function is normal, estimated EF is 55-60%. There is mild aortic valve sclerosis, mild mitral valve calcification, RVSP 41 mmHg (3) Diabetes: Qualifiers: Diabetes mellitus type: type 2 Diabetes mellitus fdc insulin use: with fdc use Diabetes mellitus complication status: with hyperglycemia Qualified Code(s): E11.65 - Type 2 diabetes mellitus with hyperglycemia; Z79.4 - watermelon harvesting supervisor (current) use of insulin Code(s): E11.9 - Type 2 diabetes mellitus without complications Status: Chronic Assessment and Plan: holding Lantus his blood sugars were, patient was started D5 normal saline. Continue Accu-Cheks and sliding scale insulin - Blood sugars stable this morning (4) Morbid (severe) obesity due to excess calories: Code(s): E66.01 - Morbid (severe) obesity due to excess calories Status: Chronic Assessment and Plan: chronic (5) Sleep apnea: Qualifiers: Sleep apnea type: obstructive Qualified Code(s): G47.33 - Obstructive sleep apnea (adult) (pediatric) Code(s): G47.30 - Sleep apnea, unspecified Status: Chronic Assessment and Plan: patient continue BiPAP at night and p.r.n. during the day when asleep and if dyspneic (6) Hypothyroid: Qualifiers: Hypothyroidism type: unspecified Qualified Code(s): E03.9 - Hypothyroidism, unspecified Code(s): E03.9 - Hypothyroidism, unspecified Status: Chronic Assessment and Plan: continue levothyroxine (7) COPD (chronic obstructive pulmonary disease): Code(s): J44.9 - Chronic obstructive pulmonary disease, unspecified Status: Chronic Assessment and Plan: continue bronchodilators, steroids, antibiotics (8) Hx of Parkinson's disease: Code(s): Z86.69 - Personal history of other diseases of the nervous system and sense organs Status: Chronic Assessment and Plan: continue ropinirole (9) Dietary counseling and surveillance: Code(s): Z71.3 - Dietary counseling and surveillance Status: Acute Assessment and Plan: will start p.o. diet (10) DVT prophylaxis: Code(s): Z29.9 - Encounter for prophylactic measures, unspecified Status: Acute Assessment and Plan: DVT prophylaxis; Lovenox stress ulcer prophylaxis: Protonix Additional Plan discuss with patient updated her with her condition and plan of care. I answered all questions. code status: Full code Critical care time spent: 31 minutes Due to a high probability of clinically significant, life threatening deterioration, the patient required my highest level of preparedness to intervene emergently and I personally spent this critical care time directly and personally managing the patient. This critical care time included obtaining a history; ex
[2019-04-16] MEDS: ALPRAZOLAM 0.25 MG TABLET FEED TUBE ×2 (10:38→17:47)
[2019-04-16] MEDS: FUROSEMIDE 40 MG TABLET PO ×2 (10:38→17:47)
--- NOTE | 2019-04-16 11:03 | PCDIET ---
Nutrition Follow-Up Complete: Nutrition Diagnosis: Inadequate oral intake related to oral intubation as evidenced by need for tube feedings. Nutrition Goal: Patient to meet estimated nutritional needs. Goal in progress. Patient extubated 04/15/19 and passed bedside swallow by RN. MD advanced diet to diabetic, carbohydrate controlled, and patient is eager to eat. Last recorded weight is 135.7 kg which is increased, despite -I/O. Bowel Motility: Last documented bowel movement 04/11/19. Labs Reviewed: BUN (67), Cr (0.9), Na (133), Alb (2.9) Meds Noted: Albuterol, Vitamin C, Zithromax, Rocephin, Ferrous Sulfate, Lasix, Novolog, Lantus, Solu Medrol Additional Notes: Macerated areas in folds; no pressure sores reported. Agree with present diet, as tolerated. Will continue to monitor with same goal. Nutrition Monitoring and Evaluation: Follow up in 3 days.
[2019-04-16 11:06] LABS: Glucose Point of Care 129 (65-105)
[2019-04-16 16:52] LABS: Glucose Point of Care 207 (65-105)
[2019-04-16] MEDS: INSULIN ASPART (*BKC) 100 UNITS/ML SUB-Q (17:47)
--- NOTE | 2019-04-16 19:30 | PM.IMPN ---
Progress Note: A&P Assessment and Plan (1) Acute hypercapnic respiratory failure: Code(s): J96.02 - Acute respiratory failure with hypercapnia Status: Acute Assessment and Plan: Patient intubated on 04/09/19 and and able to be extubated 04/15/19 to 2L. Currently on room air. Continue IV antibiotics, nebs and steroids. No CXR today. IV Lasix remains on hold. As below. (2) Diastolic dysfunction with acute on chronic heart failure: Code(s): I50.33 - Acute on chronic diastolic (congestive) heart failure Status: Chronic Assessment and Plan: Echo in February showing EF 55% and nml diastolic dysfunction. IV Lasix on hold. Continue Coreg. Continue to monitor. Resume oral Lasix tomorrow. (3) Pneumonia: Qualifiers: Pneumonia type: due to unspecified organism Laterality: bilateral Lung location: lower lobe of lung Qualified Code(s): J18.9 - Pneumonia, unspecified organism Code(s): J18.9 - Pneumonia, unspecified organism Status: Acute Assessment and Plan: Possible bibasilar PNA. Patient passed her swallow study. Has been receiving Azithromycin and Rocephin for 7 days. Will stop and montoir cliinically. (4) COPD exacerbation: Code(s): J44.1 - Chronic obstructive pulmonary disease with (acute) exacerbation Status: Chronic Assessment and Plan: Stable. No wheezing. Change to oral Prednisone. Continue nebulizer treatments. 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 Glucose reviewed on 04/16/2019. Glucose has dropped to 45 yesterday and started on D5NS. She was off tube feedings. Glucose has improved and IVF have been stopped since she is eating now. Continue sliding scale insulin. Continue to monitor. (6) Hypertension: Qualifiers: Hypertension type: essential hypertension Qualified Code(s): I10 - Essential (primary) hypertension Code(s): I10 - Essential (primary) hypertension Status: Chronic Assessment and Plan: Blood pressure reviewed on 04/16/2019. BP well controlled. Currently on Coreg. Continue to monitor. Adjust treatment as needed. (7) Hypothyroid: Qualifiers: Hypothyroidism type: unspecified Qualified Code(s): E03.9 - Hypothyroidism, unspecified Code(s): E03.9 - Hypothyroidism, unspecified Status: Chronic Assessment and Plan: TSH within normal range. Will continue levothyroxine. (8) Sleep apnea: Qualifiers: Sleep apnea type: obstructive Qualified Code(s): G47.33 - Obstructive sleep apnea (adult) (pediatric) Code(s): G47.30 - Sleep apnea, unspecified Status: Chronic Assessment and Plan: On CPAP at home. We resumed PAP therapy and patient toelrated it well last night. (9) Morbid (severe) obesity due to excess calories: Code(s): E66.01 - Morbid (severe) obesity due to excess calories Status: Chronic Assessment and Plan: BMI 55. Continue diabetic diet. (10) DVT prophylaxis: Code(s): Z29.9 - Encounter for prophylactic measures, unspecified Status: Acute Assessment and Plan: Lovenox Subjective Date/time seen: 04/16/19 19:30 Interval history: 59yo female here for acute on chronic hypercapnic respiratory failure, CHF, and pneumonia. Patient extubated on 04/15/19 successfully. Feels well today. She passed her swallow study today. No problems overnight. Denies CP, SOB, nausea, vomiting. Eating normally. Patient up to the chair today. Exam Narrative: E
--- NOTE | 2019-04-16 22:36 | PC.NURSE ---
This patient, Sameera Chilel, was transferred to [ [id number]] on 04/16/19 at 2150. Personal belongings sent with patient. Report given to SACHIN TAYLOR. Appropriate documentation sent with patient.
[2019-04-17] VITALS (11 sets, daily range): BP systolic 136–152; BP diastolic 76–82; PULSE 62–82; RESP 12–18; TEMP 36.2–36.4; O2SAT 92–100
[2019-04-17] MEDS: INSULIN ASPART (*BKC) 100 UNITS/ML SUB-Q ×2 (00:49→16:37)
[2019-04-17 01:03] LABS: Glucose Point of Care 253 (65-105)
[2019-04-17 05:43] LABS: Blood Urea Nitrogen 68 mg/dL (7-17); Calcium 9.1 mg/dL (8.4-10.2); Carbon Dioxide 38 mmol/L (22-30); Chloride 90 mmol/L (98-107); Estimated CRCL calculation 76 ml/min; Estimated Glomerular Filt Rate > 60; Glucose 107 mg/dL (65-105); Magnesium 2.1 mg/dL (1.6-2.3); Potassium 3.5 mmol/L (3.4-5.0); Sodium 126 mmol/L (137-145)
[2019-04-17 05:53] LABS: Phosphorus 4.2 mg/dL (2.5-4.5)
[2019-04-17] MEDS: LEVOTHYROXINE SODIUM 50 MCG TABLET PO (06:35)
[2019-04-17 06:49] LABS: Glucose Point of Care 91 (65-105)
[2019-04-17] MEDS: IPRATROPIUM BR 0.02% INH SOLN 0.5 MG/2.5 ML VIAL INHALATION ×2 (07:41→14:51)
[2019-04-17] MEDS: ALBUTEROL SULFATE NEB 2.5 MG/0.5 ML INH 5 MG INHALATION ×2 (07:41→14:51)
--- NOTE | 2019-04-17 07:46 | PC.NURSE ---
This patient, Sameera Chilel, was received from [ ICU 6] on 04/16/2019 at 2215. Personal belongings list checked and signed. Patient/family oriented to unit policies and routines
[2019-04-17] MEDS: predniSONE 20 MG TABLET 40 MG PO (09:52)
[2019-04-17] MEDS: FERROUS SULFATE 324 MG TABLET PO (09:53)
[2019-04-17] MEDS: ASPIRIN 81 MG ENTERIC TABLET PO (10:06)
[2019-04-17] MEDS: carvediloL 25 MG TABLET PO (10:06)
[2019-04-17] MEDS: ENOXAPARIN 40 MG/0.4 ML SYRINGE SUB-Q (10:06)
[2019-04-17] MEDS: SCOPOLAMINE 1.5 MG PATCH TRANSDERM (10:07)
[2019-04-17] MEDS: FUROSEMIDE 40 MG TABLET PO ×2 (10:07→16:43)
[2019-04-17] MEDS: FAMOTIDINE 20 MG TABLET PO (10:07)
[2019-04-17] MEDS: ASCORBIC ACID 500 MG TABLET PO (10:07)
[2019-04-17] MEDS: TOLNAFTATE 1% POWDER 45 GM BTL 1 APPLIC TOPICAL (10:09)
[2019-04-17 12:09] LABS: Glucose Point of Care 148 (65-105)
--- NOTE | 2019-04-17 12:25 | PM.DS ---
DS: Diagnosis Admitting Diagnosis Admitting Diagnosis: Hypertensive heart disease with heart failure Discharge Diagnosis (1) Acute hypercapnic respiratory failure: Code(s): J96.02 - Acute respiratory failure with hypercapnia Status: Acute Assessment and Plan: Patient presented in respiratory failure and intubated on 04/09/19. She was admitted to the ICU and treated for CHF exacerbatio, PNA and COPD exacerbation. She was able to be extubated 04/15/19 to 2L nasal cannula. She was able to be weaned to room air. Patient requesting discharge daily since being extubated. She is on room air. She lives at [facility]. The notes state that there was a previous plan for pt to have [facility] but she has decided to keep pt a full code and seek full treatment until after this health care episode resolves . Patient recovering well. It was felt that the patient could be discharged back to the [facility] today. (2) Diastolic dysfunction with acute on chronic heart failure: Code(s): I50.33 - Acute on chronic diastolic (congestive) heart failure Status: Chronic Assessment and Plan: Echo in February 2019 showing EF 55% and normal diastolic dysfunction. Treated with IV Lasix with excellent urine outpt. We continued her Coreg. She was transitioned to oral Lasix. Hyponatremia noted which could be either lab error or from the Lasix. Will hold lasix for 1 day and repeat BMP next week. Should improve as patient is eating better and she is back on her home Lasix. (3) Pneumonia: Qualifiers: Laterality: bilateral Lung location: lower lobe of lung Pneumonia type: due to unspecified organism Qualified Code(s): J18.9 - Pneumonia, unspecified organism Code(s): J18.9 - Pneumonia, unspecified organism Status: Acute Assessment and Plan: Chest xray showing possible bibasilar PNA. Patient completed treatment with Rocephin and Azithromycin. After extubation she passed her swallow study. (4) COPD exacerbation: Code(s): J44.1 - Chronic obstructive pulmonary disease with (acute) exacerbation Status: Chronic Assessment and Plan: Patient treated for acute exacerbation with Solu-Medrol and nebulizer treatments. She has been transitioned to oral steroids. (5) Diabetes: Qualifiers: Diabetes mellitus complication status: with hyperglycemia Diabetes mellitus half-way insulin use: with oysterman use Diabetes mellitus type: type 2 Qualified Code(s): E11.65 - Type 2 diabetes mellitus with hyperglycemia; Z79.4 - custodial (current) use of insulin Code(s): E11.9 - Type 2 diabetes mellitus without complications Status: Chronic Assessment and Plan: A1c 8.0. Glucose reviewed daily. Glucose was elevated to 300's so Lantus started. Glucose did drop once she was off the tube feedings around the time of extubation. Glucose has improved since she is eating now. We had her on sliding scale insulin protocol. (6) Hypertension: Qualifiers: Hypertension type: essential hypertension Qualified Code(s): I10 - Essential (primary) hypertension Code(s): I10 - Essential (primary) hypertension Status: Chronic Assessment and Plan: Blood pressure reviewed daily. BP remained well controlled. (7) Hypothyroid: Qualifiers: Hypothyroidism type: unspecified Qualified Code(s): E03.9 - Hypothyroidism, unspecified Code(s): E03.9 - Hypothyroidism, unspecified Status: Chronic Assessment and Plan: TSH within normal range. We contiued levothyroxine. (8) Sleep apnea: Qualifiers: Sleep apnea type: obstructive Qualified Code(s): G47.33 - Obstructive sleep apnea (adult) (pediatric) Code(s): G47.30 - Sleep apnea, unspecified Status: Chronic Assessment and Plan: On CPAP at home. We resumed PAP therapy after extubation and patient toelrated it well.
--- NOTE | 2019-04-17 12:32 | PCPTNOTE ---
Patient refused treatment this session due to waiting for lunch to arrive. Also stated I will be going home tomorrow so I don't need therapy
[2019-04-17 17:51] LABS: Glucose Point of Care 257 (65-105)
== END 2019-04-17 18:22 | DRG 207 ==
LOC: ANHED 11:47 → ANHIMU 12:52 → ANHICU 04-10 02:40 → ANH3MED 04-17 05:50 → ANHICU 04-19 10:17 → ANHIMU 04-19 10:17
PROVIDERS: Family Medicine; Internal Medicine; Nurse Practitioner; Physician Assistant; Admitting Provider Internal Medicine; Emergency Provider Emergency Medicine; Visit Provider Hospitalist
DX: J96.22 Acute and chronic respiratory failure with hypercapnia (principal); I50.33 Acute on chronic diastolic (congestive) heart failure; J18.9 Pneumonia, unspecified organism; Z68.43 Body mass index [BMI] 50.0-59.9, adult; J44.1 Chronic obstructive pulmonary disease with (acute) exacerbation; J44.0 Chronic obstructive pulmonary disease with (acute) lower respiratory infection; I11.0 Hypertensive heart disease with heart failure; Z23 Encounter for immunization; F31.9 Bipolar disorder, unspecified; Z98.41 Cataract extraction status, right eye; Z98.42 Cataract extraction status, left eye; Z86.73 Personal history of transient ischemic attack (TIA), and cerebral infarction without residual deficits; E66.01 Morbid (severe) obesity due to excess calories; F41.8 Other specified anxiety disorders; K21.9 Gastro-esophageal reflux disease without esophagitis; G20 Parkinson's disease; E03.9 Hypothyroidism, unspecified; Z79.4 Long term (current) use of insulin; I89.0 Lymphedema, not elsewhere classified; E55.9 Vitamin D deficiency, unspecified; Z90.49 Acquired absence of other specified parts of digestive tract; G47.33 Obstructive sleep apnea (adult) (pediatric); E11.65 Type 2 diabetes mellitus with hyperglycemia
CPT/HCPCS: 31500; 36415; 36600; 71045; 74018; 80048; 80053; 80069; 82375; 82805; 83036; 83050; 83605; 83735; 83880; 84100; 84443; 84484; 85025; 85027; 85610; 85730; 86140; 87070; 87081; 87205; 92610; 93005; 94002; 94003; 94640; 96374; 97161; 97165; 99285; A9270; J0330; J0360; J0456; J0696; J1650; J1815; J1940; J2250; J2704; J2920; J2930; J3010; J3475; J7042; J7050; J7512